=== PATIENT | female | born 1970 | race African-American/Black ===

== ENCOUNTER 2016-06-13 05:07 | Inpatient (IN) | payer BC, OTHER ==
[2016-06-10 16:35] VITALS: BMI 46.3
--- NOTE | 2016-06-13 09:21 | HP ---
History & Physical Update - History History: No Change - Physical Physical: No Change - Assessment Assessment: No Change - Plan Plan: No Change (Enlarged fibroid uterus, menorrhagia - for SARA and bilateral salpingectomy)
[2016-06-13] MEDS ORDERED: CEFAZOLIN 2 GM/D5W 50 ML IVPB ONE (10:15)
[2016-06-13] MEDS ORDERED: ROPIVACAINE HCL 0.5% 30ML VIAL ONE (10:31)
[2016-06-13] MEDS ORDERED: MIDAZOLAM HCL 2 MG/2 ML SINGLE DOSE VIAL ONE ×2 (10:32)
[2016-06-13] MEDS ORDERED: PROPOFOL 20 ML ONE (11:53)
[2016-06-13] MEDS ORDERED: HYDROmorphone HCL CARPU-JECT 1 MG/1 ML DISP.SYRIN IVPB PRN ×2 (11:57→15:06)
[2016-06-13] MEDS ORDERED: HYDROmorphone HCL 2 MG TABLET PO PRN (11:57)
[2016-06-13] MEDS ORDERED: ONDANSETRON 4 MG/2 ML VIAL IVPB PRN (11:58)
[2016-06-13] MEDS ORDERED: ceFAZolin SODIUM 1 GM VIAL IVPB ONE (12:36)
[2016-06-13] MEDS ORDERED: ceFAZolin SODIUM 1 GM VIAL ONE (12:42)
[2016-06-13] MEDS ORDERED: HYDROCORTISONE SOD SUCCINATE 2 ML ONE (12:48)
[2016-06-13] MEDS ORDERED: HYDROmorphone HCL/PF 1 MG/ML VIAL (FOR PYXIS CHARGING ONLY) ONE (12:48)
[2016-06-13] MEDS ORDERED: KETOROLAC TROMETHAMINE 30 MG/1 ML VIAL ONE (12:54)
[2016-06-13] MEDS ORDERED: DEXAMETHASONE SOD PHOSPHATE 4 MG/1 ML VIAL ONE (12:54)
[2016-06-13] MEDS ORDERED: METHYLENE BLUE 1% 10 MG/1 ML VIAL ONE (13:24)
[2016-06-13] MEDS ORDERED: METHYLENE BLUE 1% 10 MG/1 ML VIAL IVPUSH ONE (14:09)
[2016-06-13] MEDS ORDERED: NEOSTIGMINE METHYLSULFATE 0.5 MG/ML - 10 ML MDV ONE (14:15)
[2016-06-13] MEDS ORDERED: GLYCOPYRROLATE 0.2 MG/1 ML VIAL ONE (14:16)
[2016-06-13] MEDS ORDERED: HYDROmorphone *PCA* 10MG/50ML DISP.SYRIN PCA ONE (14:57)
[2016-06-13] MEDS ORDERED: DEXAMETHASONE SOD PHOSPHATE 4 MG/1 ML VIAL IVPUSH PRN (15:06)
[2016-06-13] MEDS ORDERED: PROMETHAZINE HCL 25 MG/1 ML VIAL IVPB PRN (15:06)
--- NOTE | 2016-06-13 15:26 | OP ---
Operative Note - Note: Operative Date: 06/13/16 Pre-Operative Diagnosis: Large fibroid uterus, menorrhagia, anemia Operation: SARA, RSO, left salpingectomy Findings: 20 week size enlarged fibroid uterus normal bilateral ovaries left hydrosalpinx normal right fallopian tube Post-Operative Diagnosis: Same as Pre-op Surgeon: Genesis Angela Priming Powder Premix Blender: Katelin Marquez Anesthesiologist/STATION INSTALLER AND REPAIRER: Uyen Vicente Anesthesia: General Specimens Removed: Uterus, Cervix, Bilateral fallopian tubes, right ovary Estimated Blood Loss (mls): 750 Blood Volume Replaced (mls): 350 Operative Report Dictated: Yes
[2016-06-13] MEDS ORDERED: IBUPROFEN 800 MG/8 ML IJ IVPB PRN (16:00)
[2016-06-13] MEDS: INSULIN SLIDING SCALE (NOVOLOG) 1 VIAL SQ SCH ×3 (17:54→22:33)
[2016-06-13] MEDS: LACTATED RINGERS SOLUTION 1,000 ML IV SCH (19:00)
[2016-06-13] MEDS: CEFAZOLIN 2 GM in DEXTROSE 5%-WATER - 100 ML IVPB SCH (20:59)
[2016-06-13] MEDS: ATORVASTATIN CA 20 MG TABLET (FP) PO SCH (22:19)
[2016-06-14] MEDS: INSULIN SLIDING SCALE (NOVOLOG) 1 VIAL SQ SCH ×6 (02:43→20:17)
[2016-06-14] MEDS: CEFAZOLIN 2 GM in DEXTROSE 5%-WATER - 100 ML IVPB SCH (05:30)
--- NOTE | 2016-06-14 07:36 | PN ---
Progress Note, Physician Chief Complaint: Pt. pain controlled with TIMBER FRAMER. No GA complaints. - Current Medication List Current Medications: Active Medications Acetaminophen (Tylenol -) 650 mg PO Q4H PRN PRN Reason: FEVER OR PAIN Atorvastatin Calcium (Lipitor -) 20 mg PO HS [facility] Last Admin: 06/13/16 22:19 Dose: 20 mg Carvedilol (Coreg -) 12.5 mg PO BID [facility] Dexamethasone Sodium Phosphate (Decadron Injection -) 4 mg IVPUSH ONCE PRN PRN Reason: NAUSEA AND/OR VOMITING Diphenhydramine HCl (Benadryl Injection -) 12.5 mg IVPUSH ONCE PRN PRN Reason: FOR ITCHING Enoxaparin Sodium (Lovenox -) 40 mg SQ DAILY [facility] Hydromorphone HCl (Dilaudid -) 2 mg PO Q4H PRN PRN Reason: PAIN Hydromorphone HCl (Dilaudid -) 4 mg PO Q4H PRN PRN Reason: PAIN Hydromorphone HCl (Dilaudid Injection -) 1 mg IVPB Q4H PRN PRN Reason: PAIN Hydromorphone HCl (Dilaudid Injection -) 1 mg IVPB [id number] PRN PRN Reason: PAIN Stop: 06/16/16 15:07 Hydromorphone HCl (Dilaudid Still Photographer -) 0 mg TIMBER FRAMER TIMBER FRAMER [facility] PRN Reason: Protocol Stop: 06/20/16 15:07 Lactated Ringer's (Lactated Ringers Solution) 1,000 mls @ 125 mls/hr IV ASDIR [facility] Last Admin: 06/13/16 19:00 Dose: 125 mls/hr Ibuprofen (Caldolor Injection -) 800 mg IVPB Q6H PRN PRN Reason: FEVER Stop: 06/14/16 10:01 Insulin Aspart (Novolog Vial Sliding Scale -) 1 vial SQ Q4H [facility] PRN Reason: Protocol Last Admin: 06/14/16 06:02 Dose: Not Given Lisinopril (Prinivil) 20 mg PO DAILY [facility] Non-Formulary Medication (Canagliflozin [Invokana]) 300 mg PO DAILY [facility] Ondansetron HCl (Zofran Injection) 4 mg IVPB Q4H PRN PRN Reason: NAUSEA AND/OR VOMITING Promethazine HCl (Phenergan Injection -) 12.5 mg IVPB Q6H PRN PRN Reason: NAUSEA AND/OR VOMITING Simethicone (Mylicon -) 80 mg PO Q4H PRN PRN Reason: GAS - Objective Vital Signs: Vital Signs Temperature 98.0 F 06/14/16 06:00 Pulse Rate 79 06/14/16 06:00 Respiratory Rate 18 06/14/16 06:00 Blood Pressure 97/54 06/14/16 06:00 O2 Sat by Pulse Oximetry (%) 99 06/13/16 21:00 Constitutional: Yes: Well Nourished, No Distress, Calm Musculoskeletal: Yes: WNL Neurological: Yes: WNL, Alert, Oriented Assessment/Plan POD#1 s/p SARA, B/L Salpingectomy under GA with Dilaudid TIMBER FRAMER. Doing well. Continue TIMBER FRAMER.
[2016-06-14 08:06] LABS: BASOPHIL 0.4 % (0-2.0); MCH 24.6 pg (25.7-33.7); MCHC 31.2 g/dl (32.0-36.0); MEAN CELL VOLUME 78.6 fl (80-96); MEAN PLT VOLUME 9.1 fl (7.5-11.1); NEUTROPHILS 79.4 % (42.8-82.8); PLATELET COUNT 209 K/MM3 (134-434); RDW 25.1 % (11.6-15.6); WHITE BLOOD COUNT 15.4 K/mm3 (4.0-10.0)
[2016-06-14 09:32] LABS: ANISOCYTOSIS 3+; HYPOCHROMIA 2+; MICROCYTOSIS 2+; POLYCHROMASIA FEW
[2016-06-14] MEDS ORDERED: PATIENT'S OWN MEDICATION (NON-FORMULARY) (Canagliflozin [Invokana] 300 MG) PO SCH (10:00)
[2016-06-14] MEDS: LISINOPRIL 20 MG TABLET (FP) PO SCH (10:15)
[2016-06-14] MEDS: CARVEDILOL 12.5 MG TABLET (FP) PO SCH ×2 (10:15→21:19)
[2016-06-14] MEDS: ACETAMINOPHEN 325 MG TABLET (FP) PO PRN ×2 (11:19→16:10)
[2016-06-14] MEDS: SIMETHICONE 80 MG TAB.CHEW (FP) PO PRN ×2 (11:24→16:11)
[2016-06-14] MEDS: LACTATED RINGERS SOLUTION 1,000 ML IV SCH (12:00)
[2016-06-14] MEDS: ENOXAPARIN NA (PORCINE) 40 MG/0.4 ML DISP.SYRIN SQ SCH (13:48)
[2016-06-14] MEDS: HYDROmorphone HCL 2 MG TABLET PO PRN ×2 (16:30→21:18)
[2016-06-14] MEDS ORDERED: PCA PUMP KEY 1 EACH EACH ONE (17:57)
[2016-06-14] MEDS: HYDROmorphone *PCA* 10MG/50ML DISP.SYRIN PCA SCH (19:32)
[2016-06-14] MEDS: ATORVASTATIN CA 20 MG TABLET (FP) PO SCH (21:19)
[2016-06-15] MEDS: INSULIN SLIDING SCALE (NOVOLOG) 1 VIAL SQ SCH ×6 (00:03→22:18)
--- NOTE | 2016-06-15 01:58 | PN ---
[id number] Current Medications: Active Medications Acetaminophen (Tylenol -) 650 mg PO Q4H PRN PRN Reason: FEVER OR PAIN Last Admin: 06/14/16 16:10 Dose: 650 mg Atorvastatin Calcium (Lipitor -) 20 mg PO HS [facility] Last Admin: 06/14/16 21:19 Dose: 20 mg Carvedilol (Coreg -) 12.5 mg PO BID [facility] Last Admin: 06/14/16 21:19 Dose: 12.5 mg Diphenhydramine HCl (Benadryl Injection -) 12.5 mg IVPUSH ONCE PRN PRN Reason: FOR ITCHING Enoxaparin Sodium (Lovenox -) 40 mg SQ DAILY [facility] Last Admin: 06/14/16 13:48 Dose: 40 mg Hydromorphone HCl (Dilaudid -) 2 mg PO Q4H PRN PRN Reason: PAIN Last Admin: 06/14/16 11:18 Dose: 2 mg Hydromorphone HCl (Dilaudid Injection -) 1 mg IVPB Q4H PRN PRN Reason: PAIN Hydromorphone HCl (Dilaudid Injection -) 1 mg IVPB [id number] PRN PRN Reason: PAIN Stop: 06/16/16 15:07 Hydromorphone HCl (Dilaudid -) 4 mg PO Q4H PRN PRN Reason: PAIN Last Admin: 06/14/16 21:18 Dose: 4 mg Insulin Aspart (Novolog Vial Sliding Scale -) 1 vial SQ Q4H [facility] PRN Reason: Protocol Last Admin: 06/15/16 00:03 Dose: Not Given Lisinopril (Prinivil) 20 mg PO DAILY [facility] Last Admin: 06/14/16 10:15 Dose: 20 mg Non-Formulary Medication (Canagliflozin [Invokana]) 300 mg PO DAILY [facility] Promethazine HCl (Phenergan Injection -) 12.5 mg IVPB Q6H PRN PRN Reason: NAUSEA AND/OR VOMITING Simethicone (Mylicon -) 80 mg PO Q4H PRN PRN Reason: GAS Last Admin: 06/14/16 16:11 Dose: 80 mg - Objective Vital Signs: Vital Signs Temperature 98.0 F 06/14/16 20:59 Pulse Rate 88 06/14/16 20:59 Respiratory Rate 20 06/14/16 20:59 Blood Pressure 103/53 06/14/16 20:59 O2 Sat by Pulse Oximetry (%) 99 06/13/16 21:00 Constitutional: Yes: Well Nourished, No Distress Gastrointestinal: Yes: Soft, Abdomen, Obese Musculoskeletal: Yes: WNL Extremities: Yes: WNL Edema: No Wound/Incision: Yes: Clean/Dry, Dressing Dry and Intact Neurological: Yes: WNL, Alert, Oriented Labs Lab Results: CBC, BMP 06/14/16 06:00 Assessment/Plan POD 1 Plad ambulate paiin management
[2016-06-15] MEDS: HYDROmorphone HCL 2 MG TABLET PO PRN ×4 (03:02→19:21)
[2016-06-15] MEDS: ACETAMINOPHEN 325 MG TABLET (FP) PO PRN ×2 (03:03→19:20)
[2016-06-15] MEDS: LISINOPRIL 20 MG TABLET (FP) PO SCH (09:23)
[2016-06-15] MEDS: ENOXAPARIN NA (PORCINE) 40 MG/0.4 ML DISP.SYRIN SQ SCH (09:24)
[2016-06-15] MEDS: CARVEDILOL 12.5 MG TABLET (FP) PO SCH ×2 (09:24→21:45)
[2016-06-15] MEDS: SIMETHICONE 80 MG TAB.CHEW (FP) PO PRN ×2 (12:55→19:20)
--- NOTE | 2016-06-15 13:15 | PN ---
Progress Note (short form) - Note Progress Note: 45 yo with Leiomyoma of the uterus, status post SARA / RSO, seen and evaluated. She's lying in bed; c/o mild incision pain. PE : Chest :CTA, no rales ABD : Soft, obese, dressing in place + incision pain EXT : No calf tenderness ASS / PLAN : Status post SARA / RSO Ambulation Analgesia PRN pain Consider D/C Home tomorrow
[2016-06-15] MEDS: glipiZIDE 10 MG TABLET (FP) PO SCH (16:24)
[2016-06-15] MEDS: ATORVASTATIN CA 20 MG TABLET (FP) PO SCH (21:45)
[2016-06-15 23:07] VITALS: TEMP 98.3
[2016-06-16] MEDS: SIMETHICONE 80 MG TAB.CHEW (FP) PO PRN (05:18)
[2016-06-16] MEDS: ACETAMINOPHEN 325 MG TABLET (FP) PO PRN ×2 (05:18→09:56)
[2016-06-16] MEDS: HYDROmorphone HCL 2 MG TABLET PO PRN ×2 (05:19→09:57)
[2016-06-16] MEDS: glipiZIDE 10 MG TABLET (FP) PO SCH (06:37)
[2016-06-16] MEDS: INSULIN SLIDING SCALE (NOVOLOG) 1 VIAL SQ SCH ×2 (06:39→11:52)
--- NOTE | 2016-06-16 07:53 | DS ---
[id number] Rate 18 06/15/16 22:00 Blood Pressure 132/68 06/15/16 22:00 O2 Sat by Pulse Oximetry (%) 99 06/13/16 21:00 Constitutional: Yes: Well Nourished, No Distress, Calm Eyes: Yes: Conjunctiva Clear, EOM Intact HENT: Yes: Atraumatic, Normocephalic Neck: Yes: Supple, Trachea Midline Cardiovascular: Yes: Regular Rate and Rhythm Respiratory: Yes: Regular, CTA Bilaterally Gastrointestinal: Yes: Soft, Abdomen, Obese, Tenderness (appropriate post surgical tenderness). No: Distention, Vomiting Renal/: No: CVA Tenderness - Left, CVA Tenderness - Right, Vaginal Bleeding Edema: No Wound/Incision: Yes: Clean/Dry, Dressing Dry and Intact, Other (wound device in tact, no/scant drainage in cartridge) Neurological: Yes: Alert, Oriented Psychiatric: Yes: Alert, Oriented Labs: CBC, BMP 06/14/16 06:00 Discharge Summary Reason For Visit: LEIOMYOMA OF UTERUS Leiomyoma of uterus, anemia, obesity, diabetes, HTN Procedures: Principal: Total abdominal hysterectomy, RSO, left salpingectomy Hospital Course: Patient admitted on 06/13 for scheduled SARA and bilateral salpingectomy. Patient underwent procedure (see operative report for details). During the procedure she did receive one unit of packed red blood cells due to significant blood loss. The patient, on post op day 1, was tolerating clear diet and voiding. Hemoglobin/Hct was stable. On post op day 2 she was passing flatus and was transitioned to regular diet. She only tolerated a minimal amount of regular diet and was ambulating, but only minimally. The patient then, on post op day 3 was tolerating a regular diet, ambulating, voiding and passing flatus and was discharged home. Condition: Good - Instructions Diet, Activity, Other Instructions: Physical activity Resume your normal everyday activity as tolerated but no heavy lifting or strenuous exercise until seen by your surgeon. You may walk unlimited amounts and climb stairs. In fact, walking every day is essential to recovery. You may resume driving the car when you feel safe and comfortable behind the wheel. No sexual activity until cleared by your physician - about 6-8 weeks. You may shower daily, no soaking in tubs or baths. Wound care You have the wound device in place. It should be on and functioning for most of the day. If the battery dies, you can plug the device into the wall to charge it. Please see your patient manual for questions regarding the device. It will be removed at your next visit (7 days from your surgery). Diet There are no dietary restrictions. Eat healthy, high-fiber foods. Drink 6 to 8 glasses of liquid each day. This will assist in keeping your bowels regular. Pain management You may take Tylenol or Ibuprofen (for example, Motrin, Advil etc.)for mild pain. Please take any prescription narcotic medication as directed for severe pain. Call Dr. Angela for any of the following: Severe pain not relieved by medication Fever of 101 or higher Excessive bleeding or drainage on dressing Inability to urinate Call the office at [phone] for an appointment in seven days from the Surgery to have the wound device removed and to evaluate the incision. Referrals: Genesis Angela DO [Staff Physician] - Disposition: HOME - Home Medications Comprehensive Discharge Medication List: Ambulatory Orders Carvedilol [Coreg] 12.5 mg PO BID 03/20/15 Glipizide 10 mg PO BID 03/20/15 Lisinopril [Prinivil] 20 mg PO DAILY 03/20/15 Simvastatin [Zocor -] 20 mg PO HS 03/20/15 Canagliflozin [Invokana] 300 mg PO DAILY 06/10/16 Exenatide Microspheres [Bydureon Pen] 2 mg SQ WEEKLY 06/10/16 Iron,Carbonyl/Vit C/Vit B12/FA [Fe C Plus Tablet] 1 tab PO BID 06/10/16
[2016-06-16] MEDS: CARVEDILOL 12.5 MG TABLET (FP) PO SCH (09:52)
[2016-06-16] MEDS: ENOXAPARIN NA (PORCINE) 40 MG/0.4 ML DISP.SYRIN SQ SCH (09:52)
[2016-06-16] MEDS: LISINOPRIL 20 MG TABLET (FP) PO SCH (09:52)
[2016-06-16 10:06] VITALS: BP 157/75; PULSE 74
--- NOTE | 2016-06-17 10:33 | PATH ---
Surgical Pathology Report Patient Name: YINA GIBSON [facility]. Rec. #: [id number] /Age/Gender: 1970 (Age: 45) / F Account: [id number] Location: [facility] Taken: 06/13/2016 Received: 06/13/2016 Reported: 06/17/2016 Physicians: Ignacio Stephens M.D. Specimen(s) Received A: UTERUS B: RIGHT FALLOPIAN TUBE & OVARY C: CERVIX D: LEFT FALLOPIAN TUBE Clinical History Leiomyoma of uterus Intraoperative Consult Diagnosis Uterus (frozen): Benign on training representative sections. 1FS Dr. Rivas, 06/13/16. Final Diagnosis A. UTERUS, TOTAL ABDOMINAL HYSTERECTOMY: CERVICAL STUMP: CHRONIC CERVICITIS WITH SQUAMOUS METAPLASIA. ENDOMETRIUM: PREDOMINANTLY PROLIFERATIVE. MYOMETRIUM: EXTENSIVE ADENOMYOSIS WITH CYSTS FORMATION; LEIOMYOMATA WITH HYDROPIC CHANGE (LARGEST 9.0 CM). UTERINE SEROSA: NO SIGNIFICANT PATHOLOGIC CHANGES. B. OVARY AND FALLOPIAN TUBE, RIGHT, SALPINGO-OOPHORECTOMY: OVARY CYSTIC FOLLICLES AND FIBROHEMORRHAGIC ADHESIONS. FALLOPIAN TUBE WITH FIBRINOHEMORRHAGIC AND FIBROVASCULAR TUBO-OVARIAN ADHESIONS. C. CERVIX: CHRONIC CERVICITIS WITH SQUAMOUS METAPLASIA. D. FALLOPIAN TUBE, LEFT, SALPINGECTOMY: FALLOPIAN TUBE WITH HYDROSALPINX. Electronically Signed Roshan Rivas M.D. Gross Description A. Received fresh labeled "uterus" is a 2012 g supracervically amputated uterus with no attached adnexa. The specimen measures 21 cm from superior to inferior, 20 cm from left to right and 13 cm anterior to posterior. The serosa is pink-ramirez and smooth. The endometrial cavity measures 10 cm in length and 6.5 cm from cornu to cornu. The endometrium is ramirez and lush measuring up to 0.3 cm in thickness. The myometrium displays multiple intramural nodules measuring up to 9.0 cm in greatest dimension. The cut surface of the nodules id ramirez-white with some of the intramural nodules displaying foci of degeneration as well as focal hemorrhagic cysts containing dark brown blood. The remaining myometrium is ramirez-pink and measures up to 9 cm in thickness. A frozen section is performed on 2 of the intramural nodules. [place] sections are submitted in 14 cassettes as follows: 1-frozen section residue; 2-cervical stump margin of resection; 4-5-ovjfxostuctkmu; 9-63-wzmyxrlovc nodules. B. Received in formalin labeled "right fallopian tube and ovary" is a 1 cm in length fimbriated portion of fallopian tube. The outer surface is ramirez-britton with tubal ovarian adhesions. The attached ovary measures 4.0 x 2.0 x 1.1 cm. The outer surface of the ovary is ramirez-britton and smooth. Sectioning reveals multi-focal small cysts containing serous fluid. The remaining ovarian parenchyma is unremarkable. [place] sections are submitted in 4 cassettes as follows: 1-fimbria; 6-nquzl-dsbaiwho of fallopian tube; 9-3-vjkvnnyokyzdzn ovary. C. Received in formalin labeled "cervix" is a 5 cm in length x 2.7 cm in diameter unoriented cervix. The ectocervix is ramirez, smooth and glistening. The endocervix is unremarkable. [place] sections are submitted in 2 cassettes. D. Received in formalin labeled "left fallopian tube" is a 5 cm in length dilated, fimbriated fallopian tube. The outer surface is ramirez-britton and smooth. Sectioning reveals a focally dilated, cystic lumen containing ramirez serous fluid. [place] sections are submitted in 4 cassettes as follows: 1-2-fimbria; 9-6-pesqf-sections of fallopian tube. 06/14/2016 [facility]06/13/2016
--- NOTE | 2016-06-17 13:59 | OP ---
DATE OF OPERATION: PREOPERATIVE DIAGNOSES: Enlarged fibroid uterus, anemia, pelvic and abdominal pain. POSTOPERATIVE DIAGNOSES: Enlarged fibroid uterus, anemia, pelvic and abdominal pain. PROCEDURE: Total abdominal hysterectomy, right salpingo-oophorectomy, left salpingectomy. SURGEON: Genesis Angela DO DISTRIBUTION FIELD TECHNICIAN: Katelin Marquez MD ANESTHESIA: General administered by Uyen Vicente. ESTIMATED BLOOD LOSS: 750 mL. COMPLICATIONS: Otherwise none. DISPOSITION: Stable to PACU. FINDINGS: Included enlarged hydropic fibroid uterus, adhesions from the bladder to the anterior uterus, and adhesions from the right ovary to the uterus. Sponge, needle, and instrument count was reported as correct. BRIEF HISTORY AND PROCEDURE: The patient is a 45-year-old female who had been seen in the past with complaints of abdominal pain, heavy periods, and symptomatic anemia. Upon examination and imaging studies was noted to have a very large fibroid uterus. The patient was counseled on her options, and she was consented for a total abdominal hysterectomy and a bilateral salpingectomy. The patient has a medical history of diabetes, obesity, hypertension, anemia and; therefore, she underwent a preoperative clearance from her primary care physician. She was then admitted to [facility] on June 13, 2016. Consents for the procedure were reconfirmed upon admission. The patient and the surgeon were mutually identified in the holding area. DESCRIPTION OF PROCEDURE: She was then taken back to the operating room where she was given general anesthesia by Uyen Vicente. She was then prepped and draped in the usual sterile fashion in the dorsal supine position. A Blum catheter was placed under sterile conditions. A hard time-out was performed. Then a Pfannenstiel skin incision was created using a scalpel which was carried down to the rectus fascia with the Bovie. The fascia was incised on either side of the midline with the Bovie, and the fascial incision was carried in a superolateral direction sharply with the Bovie. The fascia was tented upward and dissected off of the underlying layer of rectus muscle. The rectus muscle was identified. The midline was identified and bluntly. The peritoneum was then entered sharply to allow for adequate room for the procedure. The uterus was elevated out of the abdomen and noted to be very enlarged and appeared soft upon palpation. Attention was first turned to the right side. There were adhesions noted from the anterior bladder to the uterine serosa, which were dissected off sharply with Metzenbaum scissors. The round ligament was not easily identified at this time so attention was then turned to the left side. The left uteroovarian anastomosis was identified, clamped, cut, and ligated with the LigaSure device. This successfully dissected the ovary and tube off the uterus. The left round ligament was easily identified, clamped, ligated and cut with the LigaSure device, and the bladder flap on the left side was easily dissected anteriorly to dissect the bladder off the anterior wall of the uterus. The left uterine arteries were then isolated, clamped, ligated and cut in several passes until we reached the level of the uterosacral ligaments. Attention was then again turned to the right side. Anteriorly the bladder flap was extended to reach the level of the right round ligament. At this point, the right round ligament was easily identified, clamped, ligated and cut. The right tube and ovary were densely adhered to the uterus at this time, and an attempt to dissect the ovary from the uterus resulted in bleeding. At this point, it was decided to remove the right tube and ovary along with the uterus. The right infundibulopelvic ligament was identified, clamped, ligated and cut at the level of its attachment to the uterus. The uterine arteries were skeletonized and isolated, clamped, ligated and cut in several passed until we reached the level of the uterosacral ligaments on the right side. The uterus was detached in a supracervical fashion using the Bovie leaving the cervical stump in place. The uterus, which was enlarged and appeared soft, was sent to Pathology for frozen evaluation to rule out uterine sarcoma. Attention was then turned to the cervix, which was then elevated and it appeared at the level of the cervicovaginal junction had been met. The vagina was then entered anteriorly sharply with a knife, and the cervix was detached from the vagina at the cervicovaginal junction using Richy scissors. The cervix was then sent off to pathology for permanent evaluation. The vagina was reapproximated using 0 Vicryl in a running, locked fashion. Hemostasis was achieved by 1 single compression suture after the repair. Bilateral ureters were identified, inspected, and noted to be normal caliber and peristalsing normally. The bladder was identified and appeared to be intact. Methylene blue had been injected approximately 30 minutes prior. No Methylene blue was noted to be leaking into the abdomen at this time from any source. All surgical sites were identified and noted to be hemostatic. Next, the peritoneum was reapproximated using 0 Vicryl in a running fashion. The musculature was reapproximated using 0 Vicryl in several mattress sutures. The fascia was reapproximated using 0 Vicryl in a running fashion. The subcutaneous tissue was irrigated and reapproximated using 0 Vicryl in a running fashion. The skin was reapproximated using herman. The PREVENA wound device was placed over the top of the incision at this time under sterile conditions with the senior outside sales representative in the room providing instruction. The patient was then awaken from anesthesia. All sponges, needles, and instruments were accounted for, and counts were reported to be correct. She was then recovering in stable condition in the PACU after the procedure. GENESIS ANGELA DO /[id number] MTDD
== END 2016-06-16 12:20 | disposition home or self-care (01) | DRG 742 ==
LOC: JSAMEDAYSX 05:07 → J3W 17:00
PROVIDERS: ADMIT Obstetrics & Gynecology; ATTEND Obstetrics & Gynecology
PROC: 0UTC0ZZ Resection of Cervix, Open Approach (ICD-10-PCS; 2016-06-13)
PROC: 0UT50ZZ Resection of Right Fallopian Tube, Open Approach (ICD-10-PCS; 2016-06-13)
PROC: 0UT00ZZ Resection of Right Ovary, Open Approach (ICD-10-PCS; 2016-06-13)
PROC: 0UB60ZZ Excision of Left Fallopian Tube, Open Approach (ICD-10-PCS; 2016-06-13)
PROC: 30233N1 Transfusion of Nonautologous Red Blood Cells into Peripheral Vein, Percutaneous Approach (ICD-10-PCS; 2016-06-13)
PROC: 0UT90ZZ Resection of Uterus, Open Approach (ICD-10-PCS; principal; 2016-06-13 11:00)
DX: D25.9 Leiomyoma of uterus, unspecified (principal); Z68.42 Body mass index [BMI] 45.0-49.9, adult; N92.0 Excessive and frequent menstruation with regular cycle; D64.9 Anemia, unspecified; E11.9 Type 2 diabetes mellitus without complications; I10 Essential (primary) hypertension; E66.9 Obesity, unspecified; Z79.84 Long term (current) use of oral hypoglycemic drugs
CPT/HCPCS: 36415; 36430; 84702; 85025; 86850; 86900; 86901; 86922; 88305-TC; 88307-TC; 88331-TC; 94010; 94760; P9058

== ENCOUNTER 2017-08-04 08:02 | Inpatient (IN) | payer BC ==
[2017-08-04 08:23] VITALS: BMI 46.0
--- NOTE | 2017-08-04 08:54 | PDOC ---
History of Present Illness - General Chief Complaint: Chest Pain Stated Complaint: CHEST PAIN Time Seen by Provider: 08/04/17 08:40 Past History - Past Medical History Allergies/Adverse Reactions: Allergies Allergy/AdvReac Type Severity Reaction Status Date / Time No Known Allergies Allergy Verified 08/04/17 08:20 Home Medications: Ambulatory Orders Carvedilol [Coreg] 12.5 mg PO BID 03/20/15 Glipizide 10 mg PO BID 03/20/15 Simvastatin [Zocor -] 20 mg PO HS 03/20/15 Canagliflozin [Invokana] 100 mg PO DAILY 06/10/16 Ibuprofen [Motrin -] 600 mg PO QID PRN #28 tablet 06/16/16 Losartan/Hydrochlorothiazide [Losartan-Hctz 100-12.5 mg Tab] 1 each PO DAILY Omeprazole 40 mg PO DAILY 08/04/17 Apixaban [Eliquis -] 10 mg PO BID #14 tablet 08/07/17 Miscellaneous Medical Supply [Outpatient Order] 1 each ASDIR #1 misc Anemia: Yes Asthma: No Cancer: No Cardiac Disorders: No CVA: No COPD: No CHF: No Dementia: No Diabetes: Yes GI Disorders: No Disorders: No HTN: Yes Hypercholesterolemia: Yes Liver Disease: No Seizures: No Thyroid Disease: No - Surgical History Abdominal Surgery: No Appendectomy: No Cardiac Surgery: No Cholecystectomy: No Lung Surgery: No Neurologic Surgery: No Orthopedic Surgery: No - Suicide/Smoking/Psychosocial Hx Smoking History: Never smoked Have you smoked in the past 12 months: No Hx Alcohol Use: No Drug/Substance Use Hx: No Substance Use Type: None Hx Substance Use Treatment: No *Physical Exam - Vital Signs Last Vital Signs Temp Pulse Resp BP Pulse Ox 98.4 F 79 19 130/76 97 08/04/17 08:21 08/04/17 08:21 08/04/17 08:21 08/04/17 08:21 08/04/17 08:21 Moderate Sedation - Procedure Monitoring Vital Signs: Vital Signs Temp Pulse Resp BP Pulse Ox 98.4 F 79 19 130/76 97 08/04/17 08:21 08/04/17 08:21 08/04/17 08:21 08/04/17 08:21 08/04/17 08:21 ED Treatment Course - LABORATORY CBC & Chemistry Diagram: 08/05/17 07:41 08/05/17 07:45 Medical Decision Making - Medical Decision Making 08/14/17 07:15 pt presents to the ED complaining of chest pain and shortness of breath. CTA performed to rule out PE and is suggestive of "chronic" PE. Will start anticoagulation and admit to medicine. *DC/Admit/Observation/Transfer Diagnosis at time of Disposition: Pulmonary emboli, Chest pain - Discharge Dispostion Disposition: HOME - Prescriptions - Referrals - Patient Instructions - Post Discharge Activity
[2017-08-04] MEDS ORDERED: ASPIRIN 81 MG CHEWABLE TABLETS PO ONE (09:26)
[2017-08-04] MEDS ORDERED: ASPIRIN 81 MG CHEWABLE TABLETS ONE (09:27)
--- NOTE | 2017-08-04 09:51 | PDOC ---
History of Present Illness - General Chief Complaint: Chest Pain Stated Complaint: CHEST PAIN Time Seen by Provider: 08/04/17 08:40 History Source: Patient Exam Limitations: No Limitations - History of Present Illness Initial Comments: 08/04/17 09:38 46-year-old female presents to the ED with complaints of being awoke from her sleep with a sharp midsternal pain that she states has been constant since onset but has lessened in severity approximate half hour upon onset. Patient also complaining of nausea upon onset with mild shortness of breath. Patient denies cough, fever, chills, fatigue, recent illness, recent travel, or recent surgery. Patient states has had right lower extremity edema for the past 2 months and had an ultrasound done with negative findings. Patient has no other complaints at this time except for mild nausea. Patient denies burning sensation , palpitations, abdominal pains, or change in bowel pattern. Presenting Symptoms: Chest Pain Timing/Duration: reports: constant Severity/Quality: reports: mild, sharp Location: reports: substernal Chest Pain Radiation: reports: no radiation Prior Chest Pain/Cardiac Workup: reports: No prior chest pain Nitro Today/Relief: Yes: no nitro taken today Aspirin Received prior to arrival (Core Measure): Yes: 81 mg x 2, provided by ED Associated Symptoms: Yes: Chest Pain/pressure, Nausea, Shortness of Breath Past History - Travel Traveled outside of the country in the last 30 days: No - Past Medical History Allergies/Adverse Reactions: Allergies Allergy/AdvReac Type Severity Reaction Status Date / Time No Known Allergies Allergy Verified 08/04/17 08:20 Home Medications: Ambulatory Orders Carvedilol [Coreg] 12.5 mg PO BID 03/20/15 Glipizide 10 mg PO BID 03/20/15 Lisinopril [Prinivil] 20 mg PO DAILY 03/20/15 Simvastatin [Zocor -] 20 mg PO HS 03/20/15 Canagliflozin [Invokana] 300 mg PO DAILY 06/10/16 Exenatide Microspheres [Bydureon Pen] 2 mg SQ WEEKLY 06/10/16 Iron,Carb/Vit C/Vit B12/Folic [Fe C Plus Tablet] 1 tab PO BID 06/10/16 Ibuprofen [Motrin -] 600 mg PO QID PRN #28 tablet 06/16/16 Oxycodone HCl/Acetaminophen [Percocet 5-325 mg Tablet -] 1 tab PO Q4H #30 tablet MDD 6 06/16/16 Anemia: Yes Asthma: No Cancer: No Cardiac Disorders: No CVA: No COPD: No CHF: No Dementia: No Diabetes: Yes GI Disorders: No Disorders: No HTN: Yes Hypercholesterolemia: Yes Liver Disease: No Seizures: No Thyroid Disease: No - Surgical History Abdominal Surgery: No Appendectomy: No Cardiac Surgery: No Cholecystectomy: No Lung Surgery: No Neurologic Surgery: No Orthopedic Surgery: No - Suicide/Smoking/Psychosocial Hx Smoking History: Never smoked Have you smoked in the past 12 months: No Hx Alcohol Use: No Drug/Substance Use Hx: No Substance Use Type: None Hx Substance Use Treatment: No Patient Lives Alone: No Cardiac Specific PMH - Complaint Specific PMHX Pacemaker: No Review of Systems - Review of Systems Able to Perform ROS?: No Constitutional: No: Symptoms Reported HEENTM: No: Symptoms Reported Respiratory: No: Symptoms reported Cardiac (ROS): Yes: Symptoms Reported, Chest Pain ABD/GI: Yes: Nausea. No: Poor Appetite, Poor Fluid Intake, Vomiting, Abdominal cramping : No: Symptoms Reported Musculoskeletal: No: Symptoms Reported Integumentary: No: Symptoms Reported Neurological: No: Symptoms reported, Headache, Numbness, Weakness Endocrine: No: Symptoms Reported Hematologic/Lymphatic: No: Symptoms Reported *Physical Exam - Vital Signs Last Vital Signs Temp Pulse Resp BP Pulse Ox 98.4 F 79 20 127/61 100 08/04/17 08:21 08/04/17 11:27 08/04/17 11:27 08/04/17 11:27 08/04/17 11:27 - Physical Exam General Appearance: Yes: Nourished, Appropriately Dressed. No: Apparent Distress HEENT: positive: EOMI, MIKAYLA. negative: Pale Conjunctivae Neck: positive: Supple Respiratory/Chest: positive: Chest Tender (mild over lower aspect of sternum), Lungs Clear, Normal Breath Sounds. negative: Respiratory Distress, Accessory Muscle Use Cardiovascular: positive: Regular Rhythm, Regular Rate. negative: Murmur Gastrointestinal/Abdominal: positive: Soft. negative: Tenderness Extremity: positive: Normal Capillary Refill, Pedal Edema (1+pitting rt pedal) Integumentary: positive: Normal Color, Warm, Moist Neurologic: positive: Motor Strength 5/5 (ambulatory) Heart Score/ECG Review - History History: Slightly suspicious - Electrocardiogram EKG: Normal - Age Age: 45-65 - Risk Factors Risk Factors Heart Score: Yes Hx Hypertension Based on the list above the patient has:: 1-2 risk factors - Troponin Troponin: </= normal limit - Score Heart Score - Total: 2 - ECG Intrepretation Rhythm: Regular Rhythm (Rate 76. Normal sinus rhythm. Intervals are regular. No ST elevation or depression.) - [place]: Normal Moderate Sedation - Procedure Monitoring Vital Signs: Vital Signs Temp Pulse Resp BP Pulse Ox 98.4 F 79 20 127/61 100 08/04/17 08:21 08/04/17 11:27 08/04/17 11:27 08/04/17 11:27 08/04/17 11:27 ED Treatment Course - LABORATORY CBC & Chemistry Diagram: 08/04/17 09:45 08/04/17 09:45 - ADDITIONAL ORDERS Additional order review: Laboratory Results 08/04/17 08/04/17 08/04/17 09:45 09:45 09:45 PT with INR INR D-Dimer 5940 H Sodium 138 Potassium 4.2 Chloride 104 Carbon Dioxide 29 Anion Gap 5 L BUN 12 Creatinine 1.0 Creat Clearance w eGFR 59.43 Random Glucose 227 H Calcium 8.5 Total Bilirubin 0.4 AST 11 L ALT 18 Alkaline Phosphatase 156 H Creatine Kinase 157 Creatine Kinase Index 0.6 CK-MB (CK-2) < 1.000 Troponin I < 0.02 Total Protein 7.1 Albumin 3.0 L Urine Color Colorless Urine Appearance Clear Urine pH 7.0 Ur Specific [place] 1.021 Urine Protein Negative Urine Glucose (UA) 3+ H Urine Ketones Negative Urine Blood Negative Urine Nitrite Negative Urine Bilirubin Negative Urine Urobilinogen Negative Ur Leukocyte Esterase Negative 08/04/17 09:45 PT with INR 11.50 INR 1.02 D-Dimer Sodium Potassium Chloride Carbon Dioxide Anion Gap BUN Creatinine Creat Clearance w eGFR Random Glucose Calcium Total Bilirubin AST ALT Alkaline Phosphatase Creatine Kinase Creatine Kinase Index CK-MB (CK-2) Troponin I Total Protein Albumin Urine Color Urine Appearance Urine pH Ur Specific [place] Urine Protein Urine Glucose (UA) Urine Ketones Urine Blood Urine Nitrite Urine Bilirubin Urine Urobilinogen Ur Leukocyte Esterase 08/04/17 09:45 RBC 4.62 MCV 92.2 MCHC 32.7 RDW 14.8 D MPV 10.3 D Neutrophils % 61.7 D Lymphocytes % 28.8 D Monocytes % 6.7 Eosinophils % 2.2 D Basophils % 0.6 - RADIOLOGY Radiology Studies Ordered: Category Date Time Status CHEST CTA [CT] Stat CT Scan 08/04/17 10:52 Completed CHEST X-RAY PORTABLE* [RAD] Stat Radiology 08/04/17 09:15 Completed DUPLEX VASCUL US-1 LEG [US] Stat Ultrasound 08/04/17 10:52 Completed - Medications Given in the ED: ED Medications Discontinued Medications Generic Name Dose Route Start Last Admin Trade Name Luisq PRN Reason Stop Dose Admin Aspirin 162 mg 08/04/17 09:26 08/04/17 09:35 Asa - PO 08/04/17 09:27 162 mg ONCE ONE Administration Pantoprazole Sodium 40 mg/ 100 mls @ 200 mls/hr 08/04/17 10:51 08/04/17 13:10 Sodium Chloride IVPB 08/04/17 11:20 200 mls/hr ONCE ONE Administration Ondansetron HCl 4 mg 08/04/17 10:51 08/04/17 13:10 Zofran Injection IVPUSH 08/04/17 10:52 4 mg ONCE ONE Administration Medical Decision Making - Medical Decision Making 08/04/17 09:50 Patient with substernal sharp pain that began around 2 AM this morning and has continued but less severity. Patient with mild tenderness to the lower sternum. Patient ordered for cardiac workup including d-dimer to rule out PE secondary to shortness of breath and right lower extremity edema despite negative duplex study. Patient also ordered for 2 baby aspirin and Zofran along with Protonix. 08/04/17 10:52 08/04/17 10:53 Laboratory Tests 08/04/17 08/04/17 08/04/17 09:45 09:45 09:45 WBC 7.7 D Hgb 13.9 D Hct 42.6 D Neutrophils % 61.7 D D-Dimer Sodium 138 Potassium 4.2 Chloride 104 Carbon Dioxide 29 Anion Gap 5 L BUN 12 Creatinine 1.0 Creat Clearance w eGFR 59.43 Random Glucose 227 H Calcium 8.5 Total Bilirubin 0.4 AST 11 L ALT 18 Alkaline Phosphatase 156 H Troponin I < 0.02 Urine Glucose (UA) 3+ H Urine Nitrite Negative Ur Leukocyte Esterase Negative 08/04/17 09:45 WBC Hgb Hct Neutrophils % D-Dimer 5940 H Sodium Potassium Chloride Carbon Dioxide Anion Gap BUN Creatinine Creat Clearance w eGFR Random Glucose Calcium Total Bilirubin AST ALT Alkaline Phosphatase Troponin I Urine Glucose (UA) Urine Nitrite Ur Leukocyte Esterase 08/04/17 12:11 Duplex negative for DVT. Patient awaiting CTA of the chest 08/04/17 14:58 Chest CTA shows a non-opacification of the anterior medial segmental pulmonary artery branch which is concerning for acute pulmonary embolus. Subsegmental atelectasis versus infarction and anterior left lung base. Web within the left lower lobe pulmonary artery may be the chronic sequela of the prior pulmonary embolus. On incidental finding patient also has a small hiatal hernia and a 1.5 liver lesion which may be a cyst or hemangioma which is recommending a nonemergent outpatient liver sonogram. There is also a subcentimeter left thyroid nodule. case discussed with Dr. arredondo, medicine validation consultant, and agrees patient should be admitted. 08/04/17 14:58 Consultation to be placed for Dr. Paez key attendant and Dr. Vickey martin lawn service supervisor. Patient be placed on a heparin drip. *DC/Admit/Observation/Transfer Diagnosis at time of Disposition: Pulmonary emboli, Chest pain - Discharge Dispostion Decision to Admit order: Yes - Referrals Referrals: Alan Engel v [Primary Care Provider] - - Patient Instructions - Post Discharge Activity
[2017-08-04 10:03] LABS: URINE APPEARANCE CLEAR; URINE BILIRUBIN NEGATIVE (<2.0 mg/dL); URINE COLOR COLORLESS; URINE GLUCOSE (UA) 3+ (NEGATIVE); URINE KETONE NEGATIVE (NEGATIVE); URINE LEUK ESTERASE NEGATIVE (NEGATIVE); URINE NITRITE NEGATIVE (NEGATIVE); URINE PROTEIN NEGATIVE (NEGATIVE); URINE UROBILINOGEN NEGATIVE mg/dL (0.2-1.0)
[2017-08-04 10:28] LABS: INR 1.02 (0.82-1.09); PROTHROMBIN TIME (PATIENT) 11.5 SEC (9.7-13.0)
[2017-08-04 10:33] LABS: ANION GAP 5 (8-16); BLOOD UREA NITROGEN 12 mg/dL (7-18); CALCIUM 8.5 mg/dL (8.5-10.1); CHLORIDE 104 mmol/L (98-107); CO2 29 mmol/L (21-32); POTASSIUM 4.2 mmol/L (3.5-5.1); SODIUM 138 mmol/L (136-145)
[2017-08-04 10:34] LABS: BASO % 0.6 % (0-2.0); EOS % 2.2 % (0-4.5); HEMATOCRIT 42.6 % (32.4-45.2); HEMOGLOBIN 13.9 GM/dL (10.7-15.3); LYMPH % 28.8 % (8-40); MCH 30.2 pg (25.7-33.7); MCHC 32.7 g/dl (32.0-36.0); MEAN CELL VOLUME 92.2 fl (80-96); MEAN PLT VOLUME 10.3 fl (7.5-11.1); MONO % 6.7 % (3.8-10.2); NEUT % 61.7 % (42.8-82.8); PLATELET COUNT 204 K/MM3 (134-434); RBC 4.62 M/mm3 (3.60-5.2); RDW 14.8 % (11.6-15.6); WHITE BLOOD COUNT 7.7 K/mm3 (4.0-10.0)
[2017-08-04 10:41] LABS: ALK PHOS 156 U/L (45-117); BILIRUBIN,TOTAL 0.4 mg/dL (0.2-1.0); GLUCOSE,RANDOM 227 mg/dL (74-106); SGOT/AST 11 U/L (15-37); SGPT/ALT 18 U/L (12-78); TOT PROT 7.1 g/dl (6.4-8.2)
[2017-08-04] MEDS ORDERED: ONDANSETRON 4 MG/2 ML VIAL IVPUSH ONE (10:51)
[2017-08-04] MEDS ORDERED: PANTOPRAZOLE SODIUM 40 MG in SODIUM CHLORIDE 100 ML IVPB ONE (10:51)
[2017-08-04] MEDS ORDERED: PANTOPRAZOLE SODIUM 40 MG/100 ML BAG IVPB ONE (13:09)
[2017-08-04] MEDS ORDERED: ONDANSETRON 4 MG/2 ML VIAL ONE (13:09)
[2017-08-04] MEDS ORDERED: HEPARIN NA (PORCINE) 5,000 UNITS/ML 1ML VIAL IVPUSH PRN ×3 (15:03→20:36)
[2017-08-04] MEDS ORDERED: HEPARIN NA (PORCINE) 5,000 UNITS/ML 1ML VIAL IVPUSH ONE (15:04)
[2017-08-04] MEDS ORDERED: HEPARIN INFUSION - 25,000 UNITS/500 ML INFUS.BAG IVPB ONE (15:56)
[2017-08-04] MEDS ORDERED: HEPARIN NA (PORCINE) 5,000 UNITS/ML 1ML VIAL ONE (15:56)
[2017-08-04] MEDS: HEPARIN INFUSION - 25,000 UNITS/500 ML INFUS.BAG IVPB SCH (16:00)
--- NOTE | 2017-08-04 18:01 | EKG ---
Test Reason : Blood Pressure : / mmHG Vent. Rate : 083 BPM Atrial Rate : 083 BPM P-R Int : 166 ms QRS Dur : 094 ms QT Int : 472 ms P-R-T Axes : 052 -16 024 degrees QTc Int : 554 ms NORMAL SINUS RHYTHM INCOMPLETE RIGHT BUNDLE BRANCH BLOCK MINIMAL VOLTAGE CRITERIA FOR LVH, MAY BE NORMAL VARIANT CANNOT RULE OUT ANTEROSEPTAL INFARCT , AGE UNDETERMINED ABNORMAL ECG WHEN COMPARED WITH ECG OF 04-AUG-2017 08:02, NO SIGNIFICANT CHANGE WAS FOUND Confirmed by NILS ROSALES MD ([id number]) on 08/04/2017 6:00:45 PM Referred By: Confirmed By:NILS ROSALES MD
--- NOTE | 2017-08-04 20:21 | HP ---
Admitting History and Physical - Primary Care Physician PCP: Shikha Bone - Admission Chief Complaint: chest pain History of Present Illness: 46-year-old female presents to the ED with complaints of being awoke from her sleep with a sharp midsternal pain that she states has been constant since onset but has lessened in severity approximate half hour upon onset. Patient also complaining of nausea upon onset with mild shortness of breath. Patient denies cough, fever, chills, fatigue, recent illness, recent travel, or recent surgery. Patient states has had right lower extremity edema for the past 2 months and had an ultrasound done with negative findings. Patient has no other complaints at this time except for mild nausea. - Past Medical History Cardiovascular: Yes: HTN ...LMP: 05/27/16 Endocrine: Yes: Diabetes Mellitus - Smoking History Smoking history: Never smoked Have you smoked in the past 12 months: No - Alcohol/Substance Use Hx Alcohol Use: No Home Medications - Allergies Allergies/Adverse Reactions: Allergies Allergy/AdvReac Type Severity Reaction Status Date / Time No Known Allergies Allergy Verified 08/04/17 08:20 - Home Medications Home Medications: Ambulatory Orders Carvedilol [Coreg] 12.5 mg PO BID 03/20/15 Glipizide 10 mg PO BID 03/20/15 Simvastatin [Zocor -] 20 mg PO HS 03/20/15 Canagliflozin [Invokana] 100 mg PO DAILY 06/10/16 Ibuprofen [Motrin -] 600 mg PO QID PRN #28 tablet 06/16/16 Losartan/Hydrochlorothiazide [Losartan-Hctz 100-12.5 mg Tab] 1 each PO DAILY Omeprazole 40 mg PO DAILY 08/04/17 Apixaban [Eliquis -] 10 mg PO BID #14 tablet 08/07/17 Miscellaneous Medical Supply [Outpatient Order] 1 each ASDIR #1 misc Physical Examination Vital Signs: Vital Signs Temperature 98.4 F 08/04/17 08:21 Pulse Rate 79 08/04/17 11:27 Respiratory Rate 20 08/04/17 11:27 Blood Pressure 127/61 08/04/17 11:27 O2 Sat by Pulse Oximetry (%) 100 08/04/17 11:27 Constitutional: Yes: No Distress HENT: Yes: Atraumatic Neck: Yes: Supple Cardiovascular: Yes: Regular Rate and Rhythm Respiratory: Yes: CTA Bilaterally Gastrointestinal: Yes: Normal Bowel Sounds Extremities: Yes: WNL Edema: No Peripheral Pulses WNL: Yes Neurological: Yes: Alert, Oriented Labs: CBC, BMP 08/04/17 09:45 08/04/17 09:45 Imaging - Results X-ray: Report Reviewed Cat Scan: Report Reviewed Problem List - Problems (1) Chest pain Code(s): R07.9 - CHEST PAIN, UNSPECIFIED (2) Pulmonary emboli Assessment/Plan: iv heparin Code(s): I26.99 - OTHER PULMONARY EMBOLISM WITHOUT ACUTE COR PULMONALE (3) Diabetes Assessment/Plan: on meds, bgms stable Code(s): E11.9 - TYPE 2 DIABETES MELLITUS WITHOUT COMPLICATIONS (4) Hypercholesterolemia Assessment/Plan: on meds Code(s): E78.00 - PURE HYPERCHOLESTEROLEMIA, UNSPECIFIED (5) Hypertension Assessment/Plan: on meds Code(s): I10 - ESSENTIAL (PRIMARY) HYPERTENSION Assessment/Plan Laboratory Tests 08/04/17 08/04/17 08/04/17 09:45 09:45 09:45 WBC 7.7 D RBC 4.62 Hgb 13.9 D Hct 42.6 D MCV 92.2 MCH 30.2 D MCHC 32.7 RDW 14.8 D Plt Count 204 MPV 10.3 D Neutrophils % 61.7 D Lymphocytes % 28.8 D Monocytes % 6.7 Eosinophils % 2.2 D Basophils % 0.6 PT with INR 11.50 INR 1.02 D-Dimer Sodium Potassium Chloride Carbon Dioxide Anion Gap BUN Creatinine Creat Clearance w eGFR Random Glucose Calcium Total Bilirubin AST ALT Alkaline Phosphatase Creatine Kinase Creatine Kinase Index CK-MB (CK-2) Troponin I Total Protein Albumin Urine Color Colorless Urine Appearance Clear Urine pH 7.0 Ur Specific [place] 1.021 Urine Protein Negative Urine Glucose (UA) 3+ H Urine Ketones Negative Urine Blood Negative Urine Nitrite Negative Urine Bilirubin Negative Urine Urobilinogen Negative Ur Leukocyte Esterase Negative 08/04/17 08/04/17 08/04/17 09:45 09:45 15:11 WBC RBC Hgb Hct MCV MCH MCHC RDW Plt Count MPV Neutrophils % Lymphocytes % Monocytes % Eosinophils % Basophils % PT with INR INR D-Dimer 5940 H Sodium 138 Potassium 4.2 Chloride 104 Carbon Dioxide 29 Anion Gap 5 L BUN 12 Creatinine 1.0 Creat Clearance w eGFR 59.43 Random Glucose 227 H Calcium 8.5 Total Bilirubin 0.4 AST 11 L ALT 18 Alkaline Phosphatase 156 H Creatine Kinase 157 137 Creatine Kinase Index 0.6 CK-MB (CK-2) < 1.000 Troponin I < 0.02 < 0.02 Total Protein 7.1 Albumin 3.0 L Urine Color Urine Appearance Urine pH Ur Specific [place] Urine Protein Urine Glucose (UA) Urine Ketones Urine Blood Urine Nitrite Urine Bilirubin Urine Urobilinogen Ur Leukocyte Esterase Active Medications Generic Name Dose Route Start Last Admin Trade Name Freq PRN Reason Stop Dose Admin Heparin Sodium (Porcine) 1,000 unit 08/04/17 15:03 Heparin - IVPUSH PRN PRN Heparin Heparin Sodium/Dextrose 25,000 units in 500 mls @ 20 mls/hr 08/04/17 15:15 16:00 Heparin Infusion - IVPB 1,000 units/hr TITR KATELYN 20 mls/hr Protocol Administration 1,000 UNITS/HR Active Medications Generic Name Dose Route Start Last Admin Trade Name Freq PRN Reason Stop Dose Admin Carvedilol 12.5 mg 08/04/17 22:00 Coreg - PO BID KATELYN Glipizide 10 mg 08/04/17 22:00 Glucotrol - PO BID KATELYN Heparin Sodium (Porcine) 1,000 unit 08/04/17 15:03 Heparin - IVPUSH PRN PRN Heparin Heparin Sodium/Dextrose 25,000 units in 500 mls @ 20 mls/hr 08/04/17 15:15 16:00 Heparin Infusion - IVPB 1,000 units/hr TITR KATELYN 20 mls/hr Protocol Administration 1,000 UNITS/HR Non-Formulary Medication 100 mg 08/05/17 10:00 Canagliflozin [Invokana] PO DAILY [facility] Non-Formulary Medication 1 each 08/05/17 10:00 Losartan/Hydrochlorothiazide [Losartan-Hctz 100-12.5 Mg Tab] PO DAILY [facility] Non-Formulary Medication 40 mg 08/05/17 10:00 Omeprazole [Omeprazole] PO DAILY KATELYN Non-Formulary Medication 20 mg 08/04/17 22:00 Simvastatin PO [facility]
--- NOTE | 2017-08-04 23:38 | EKG ---
Test Reason : Blood Pressure : / mmHG Vent. Rate : 076 BPM Atrial Rate : 076 BPM P-R Int : 168 ms QRS Dur : 088 ms QT Int : 392 ms P-R-T Axes : 045 -14 018 degrees QTc Int : 441 ms NORMAL SINUS RHYTHM NORMAL ECG NO PREVIOUS ECGS AVAILABLE Confirmed by NILS ROSALES MD ([id number]) on 08/04/2017 11:38:20 PM Referred By: Confirmed By:NILS ROSALES MD
--- NOTE | 2017-08-04 23:53 | CONSULT ---
Consult - text type - Consultation Consultation Note: Patient seen and examined 46-year-old female presents to the ED with complaints of being awoke from her sleep with a sharp midsternal pain that she states has been constant since onset but has lessened in severity. Patient denies cough, fever, chills, fatigue , recent illness, recent travel, or recent surgery. Patient states has had right lower extremity edema for the past 2 months and had an ultrasound done with negative findings. Patient has no other complaints at this time except for mild nausea. Allergies/Adverse Reactions: Allergies Allergy/AdvReac Type Severity Reaction Status Date / Time No Known Allergies Allergy Verified 08/04/17 08:20 Home Medications: Ambulatory Orders Carvedilol [Coreg] 12.5 mg PO BID 03/20/15 Glipizide 10 mg PO BID 03/20/15 Lisinopril [Prinivil] 20 mg PO DAILY 03/20/15 Simvastatin [Zocor -] 20 mg PO HS 03/20/15 Canagliflozin [Invokana] 300 mg PO DAILY 06/10/16 Exenatide Microspheres [Bydureon Pen] 2 mg SQ WEEKLY 06/10/16 Iron,Carb/Vit C/Vit B12/Folic [Fe C Plus Tablet] 1 tab PO BID 06/10/16 Ibuprofen [Motrin -] 600 mg PO QID PRN #28 tablet 06/16/16 Oxycodone HCl/Acetaminophen [Percocet 5-325 mg Tablet -] 1 tab PO Q4H #30 tablet MDD 6 06/16/16 PMH Anemia: Yes Diabetes: Yes HTN: Yes Hypercholesterolemia: Yes - Suicide/Smoking/Psychosocial Hx Smoking History: Never smoked *Physical Exam - Vital Signs Last Vital Signs Temp Pulse Resp BP Pulse Ox 98.4 F 79 20 127/61 100 08/04/17 08:21 08/04/17 11:27 08/04/17 11:27 08/04/17 11:27 08/04/17 11:27 Cor: RSR, No murmurs, No gallops Lungs: Clear to P&A Abd: Soft, Normal bowel sounds, No organomegaly Ext:No significant edema Laboratory Results 08/04/17 08/04/17 08/04/17 09:45 09:45 09:45 PT with INR INR D-Dimer 5940 H Sodium 138 Potassium 4.2 Chloride 104 Carbon Dioxide 29 Anion Gap 5 L BUN 12 Creatinine 1.0 Creat Clearance w eGFR 59.43 Random Glucose 227 H Calcium 8.5 Total Bilirubin 0.4 AST 11 L ALT 18 Alkaline Phosphatase 156 H Creatine Kinase 157 Creatine Kinase Index 0.6 CK-MB (CK-2) < 1.000 Troponin I < 0.02 Total Protein 7.1 Albumin 3.0 L Urine Color Colorless Urine Appearance Clear Urine pH 7.0 Ur Specific [place] 1.021 Urine Protein Negative Urine Glucose (UA) 3+ H Urine Ketones Negative Urine Blood Negative Urine Nitrite Negative Urine Bilirubin Negative Urine Urobilinogen Negative Ur Leukocyte Esterase Negative 08/04/17 09:45 PT with INR 11.50 INR 1.02 D-Dimer Sodium Potassium Chloride Carbon Dioxide Anion Gap BUN Creatinine Creat Clearance w eGFR Random Glucose Calcium Total Bilirubin AST ALT Alkaline Phosphatase Creatine Kinase Creatine Kinase Index CK-MB (CK-2) Troponin I Total Protein Albumin Urine Color Urine Appearance Urine pH Ur Specific [place] Urine Protein Urine Glucose (UA) Urine Ketones Urine Blood Urine Nitrite Urine Bilirubin Urine Urobilinogen Ur Leukocyte Esterase 08/04/17 09:45 RBC 4.62 MCV 92.2 MCHC 32.7 RDW 14.8 D MPV 10.3 D Neutrophils % 61.7 D Lymphocytes % 28.8 D Monocytes % 6.7 Eosinophils % 2.2 D Basophils % 0.6 Chest CTA shows a non-opacification of the anterior medial segmental pulmonary artery branch which is concerning for acute pulmonary embolus. Subsegmental atelectasis versus infarction and anterior left lung base. Web within the left lower lobe pulmonary artery may be the chronic sequela of the prior pulmonary embolus. On incidental finding patient also has a small hiatal hernia and a 1.5 liver lesion which may be a cyst or hemangioma which is recommending a nonemergent outpatient liver sonogram. There is also a subcentimeter left thyroid nodule. A/P 46 y/o patient with obesity, eczema, DM, HTn, hypercholesterolemia, no obvious provoking factor, presents with RLE pain of few weeks and then developed acute Left sided chest pain. Noprior h/o VTE CTA --left segmental pulmonary artery acute embolism ? web s/o prior episode. Under distended esophagus/hiatal hernia??liver cyst/hemangioma ( needs sonogram) //left thyroid nodule duplex neg. On heparin drip Discussed pros/cons of coumadin vs NOACs. Lack of data for NOACs in obese patients , but being used discussed lack of antidote with NOACs Also discussed their timely onset of action/convenience Discussed lag in onset of action wtih coumadin/dietry restrictions /need for frequent monitoring Patient to decide
[2017-08-04] MEDS: CARVEDILOL 12.5 MG TABLET (FP) PO SCH (23:57)
[2017-08-04] MEDS: ATORVASTATIN CA 10 MG TABLET (FP) PO SCH (23:57)
[2017-08-05] MEDS: glipiZIDE 10 MG TABLET (FP) PO SCH ×2 (07:23→17:24)
[2017-08-05 08:33] LABS: BASO % 1.1 % (0-2.0); EOS % 1.6 % (0-4.5); HEMATOCRIT 44.1 % (32.4-45.2); HEMOGLOBIN 14.5 GM/dL (10.7-15.3); LYMPH % 28.7 % (8-40); MCH 30.3 pg (25.7-33.7); MEAN CELL VOLUME 91.9 fl (80-96); MEAN PLT VOLUME 10.4 fl (7.5-11.1); MONO % 4.2 % (3.8-10.2); NEUT % 64.4 % (42.8-82.8); PLATELET COUNT 209 K/MM3 (134-434); RDW 14.6 % (11.6-15.6); WHITE BLOOD COUNT 8.3 K/mm3 (4.0-10.0)
[2017-08-05 09:02] LABS: CHLORIDE 101 mmol/L (98-107); POTASSIUM 4.3 mmol/L (3.5-5.1); SODIUM 134 mmol/L (136-145)
[2017-08-05] MEDS: HYDROCHLOROTHIAZIDE 12.5 MG CAPSULE (FP) PO SCH (09:16)
[2017-08-05] MEDS: CARVEDILOL 12.5 MG TABLET (FP) PO SCH ×2 (09:17→21:41)
[2017-08-05] MEDS: PANTOPRAZOLE 40 MG TABLET (FP) PO SCH (09:17)
[2017-08-05] MEDS ORDERED: PATIENT'S OWN MEDICATION (NON-FORMULARY) (Canagliflozin [Invokana] 100 MG) PO SCH (10:00)
[2017-08-05] MEDS ORDERED: PATIENT'S OWN MEDICATION (NON-FORMULARY) (Losartan/Hydrochlorothiazide [Losartan-Hctz 100- PO SCH (10:00)
[2017-08-05] MEDS ORDERED: LOSARTAN POTASSIUM 100 MG TABLET PO SCH (10:00)
[2017-08-05 10:15] LABS: ALBUMIN 3.2 g/dl (3.4-5.0); ALK PHOS 166 U/L (45-117); ANION GAP 8 (8-16); BILIRUBIN,TOTAL 0.5 mg/dL (0.2-1.0); BLOOD UREA NITROGEN 12 mg/dL (7-18); CALCIUM 9.2 mg/dL (8.5-10.1); CO2 25 mmol/L (21-32); CREATININE 1.1 mg/dL (0.55-1.02); GLUCOSE,RANDOM 260 mg/dL (74-106); SGOT/AST 15 U/L (15-37); SGPT/ALT 18 U/L (12-78); TOT PROT 7.6 g/dl (6.4-8.2)
--- NOTE | 2017-08-05 12:23 | CON.PULM ---
Consult Consult Specialty:: PULMONARY Referred by:: Dr. Bone Reason for Consultation:: PE - History of Present Illness Chief Complaint: shortness of breath History of Present Illness: 46yo female with h/o HTN, DM who was awoken from her sleep with shortness of breath and sharp chest pain. No cough, palpitations. No fevers, chills or sweats. Reports nausea without vomiting. Reports right leg swelling starting 2 months ago for which she had a negative ultrasound. Followed up with her PMD who changed some of her antihypertensives. Denies any prior history of clots. She is a never smoker, does not take any hormone replacements or contraceptives. No family history of clots. Father with prostate ca. She does not lead a sedentary lifestyle, works with children. She is up to date on her mammogram, pap smear and had a colonoscopy 2 years ago showing 2 small polyps. Had a hysterectomy last year for fibroids. - History Source History Provided By: Patient, Medical Record Limitations to Obtaining History: No Limitations - Past Medical History Cardio/Vascular: Yes: HTN ...LMP: 05/27/16 Endocrine: Yes: Diabetes Mellitus - Alcohol/Substance Use Hx Alcohol Use: No - Smoking History Smoking history: Never smoked Have you smoked in the past 12 months: No Home Medications - Allergies Allergies/Adverse Reactions: Allergies Allergy/AdvReac Type Severity Reaction Status Date / Time No Known Allergies Allergy Verified 08/04/17 08:20 - Home Medications Home Medications: Ambulatory Orders Carvedilol [Coreg] 12.5 mg PO BID 03/20/15 Glipizide 10 mg PO BID 03/20/15 Simvastatin [Zocor -] 20 mg PO HS 03/20/15 Canagliflozin [Invokana] 100 mg PO DAILY 06/10/16 Ibuprofen [Motrin -] 600 mg PO QID PRN #28 tablet 06/16/16 Losartan/Hydrochlorothiazide [Losartan-Hctz 100-12.5 mg Tab] 1 each PO DAILY Omeprazole 40 mg PO DAILY 08/04/17 Review of Systems - Review of Systems Constitutional: denies: Chills, Fever Eyes: denies: Recent Change in Vision HENT: denies: Nasal Congestion, Throat Pain Neck: denies: Stiffness, Tenderness Cardiovascular: reports: Chest Pain, Edema, Shortness of Breath. denies: Palpitations Respiratory: reports: SOB. denies: Cough, Hemoptysis, Wheezing Gastrointestinal: reports: Nausea. denies: Abdominal Pain, Vomiting Genitourinary: denies: Dysuria, Hematuria Neurological: denies: Dizziness, Headache Physical Exam Vital Sings: Vital Signs Temperature 97.9 F 08/05/17 09:15 Pulse Rate 89 08/05/17 09:15 Respiratory Rate 16 08/05/17 09:15 Blood Pressure 116/66 08/05/17 09:15 O2 Sat by Pulse Oximetry (%) 98 08/05/17 09:15 Constitutional: Yes: No Distress, Calm Eyes: Yes: Conjunctiva Clear, EOM Intact HENT: Yes: Atraumatic, Normocephalic Neck: Yes: Supple, Trachea Midline Cardiovascular: Yes: Regular Rate and Rhythm Respiratory: Yes: Regular, CTA Bilaterally ...Clubbing: No Gastrointestinal: Yes: Normal Bowel Sounds, Soft, Abdomen, Obese. No: Tenderness Edema: Yes (trace) Labs: CBC, BMP 08/05/17 07:41 08/05/17 07:45 Imaging - Results Cat Scan: Report Reviewed, Image Reviewed Problem List - Problems (1) Chest pain Code(s): R07.9 - CHEST PAIN, UNSPECIFIED (2) Pulmonary emboli Code(s): I26.99 - OTHER PULMONARY EMBOLISM WITHOUT ACUTE COR PULMONALE (3) Hypertension Code(s): I10 - ESSENTIAL (PRIMARY) HYPERTENSION (4) Diabetes Code(s): E11.9 - TYPE 2 DIABETES MELLITUS WITHOUT COMPLICATIONS Assessment/Plan Acute Subsegmental Pulmonary Embolism Morbid Obesity HTN DM - continue anticoagulation, favor NOAC - would anticoagulate for at least 6 months for unprovoked VTE - continue maintenance cancer screening as outpt Thank you for this consult Wade Vasquez MD
[2017-08-05] MEDS: HEPARIN INFUSION - 25,000 UNITS/500 ML INFUS.BAG IVPB SCH (14:30)
--- NOTE | 2017-08-05 16:00 | PN ---
Progress Note, Physician - Current Medication List Current Medications: Active Medications Atorvastatin Calcium (Lipitor -) 10 mg PO HS [facility] Last Admin: 08/04/17 23:57 Dose: 10 mg Carvedilol (Coreg -) 12.5 mg PO BID [facility] Last Admin: 08/05/17 09:17 Dose: 12.5 mg Glipizide (Glucotrol -) 10 mg PO BIDAC [facility] Last Admin: 08/05/17 07:23 Dose: 10 mg Heparin Sodium (Porcine) (Heparin -) 1,000 unit IVPUSH PRN PRN PRN Reason: Heparin Heparin Sodium (Porcine) (Heparin -) 5,000 unit IVPUSH PRN PRN PRN Reason: Heparin Hydrochlorothiazide (Hctz -) 12.5 mg PO DAILY [facility] Last Admin: 08/05/17 09:16 Dose: 12.5 mg Heparin Sodium/Dextrose (Heparin Infusion -) 25,000 units in 500 mls @ 20 mls/ hr IVPB TITR [facility]; 1,000 UNITS/HR PRN Reason: Protocol Last Admin: 08/04/17 16:00 Dose: 1,000 units/hr, 20 mls/hr Losartan Potassium (Losartan Potassium) 100 mg PO DAILY [facility] Last Admin: 08/05/17 09:17 Dose: 100 mg Non-Formulary Medication (Canagliflozin [Invokana]) 100 mg PO DAILY [facility] Pantoprazole Sodium (Protonix -) 40 mg PO DAILY [facility] Last Admin: 08/05/17 09:17 Dose: 40 mg - Objective Vital Signs: Vital Signs Temperature 98.4 F 08/05/17 15:04 Pulse Rate 84 08/05/17 15:04 Respiratory Rate 16 08/05/17 15:04 Blood Pressure 119/69 08/05/17 15:04 O2 Sat by Pulse Oximetry (%) 99 08/05/17 15:04 Constitutional: Yes: No Distress HENT: Yes: Atraumatic Neck: Yes: Supple Cardiovascular: Yes: Regular Rate and Rhythm Respiratory: Yes: CTA Bilaterally Gastrointestinal: Yes: Normal Bowel Sounds Extremities: Yes: WNL Neurological: Yes: Alert, Oriented Labs: CBC, BMP 08/05/17 07:41 08/05/17 07:45 INR, PTT INR 1.02 (0.82-1.09) 08/04/17 09:45 Problem List - Problems (1) Chest pain Assessment/Plan: fu troponins Code(s): R07.9 - CHEST PAIN, UNSPECIFIED (2) Pulmonary emboli Assessment/Plan: iv heparin Code(s): I26.99 - OTHER PULMONARY EMBOLISM WITHOUT ACUTE COR PULMONALE (3) Diabetes Assessment/Plan: on meds, bgms stable Code(s): E11.9 - TYPE 2 DIABETES MELLITUS WITHOUT COMPLICATIONS (4) Hypercholesterolemia Assessment/Plan: on meds Code(s): E78.00 - PURE HYPERCHOLESTEROLEMIA, UNSPECIFIED (5) Hypertension Assessment/Plan: on meds Code(s): I10 - ESSENTIAL (PRIMARY) HYPERTENSION
--- NOTE | 2017-08-05 16:30 | PN ---
Progress Note (short form) - Note Progress Note: seen and examined . O/E; General: NAD HEENT: NCAT lungs: CTA b/l Cor;RRR abd: soft NT ND LE: no CCE Last Vital Signs Temp Pulse Resp BP Pulse Ox 98.4 F 84 16 119/69 99 08/05/17 15:04 08/05/17 15:04 08/05/17 15:04 08/05/17 15:04 08/05/17 15:04 CBC, BMP 08/05/17 07:41 08/05/17 07:45 Current Medications Generic Name Dose Route Start Last Admin Trade Name Freq PRN Reason Stop Dose Admin Atorvastatin Calcium 10 mg 08/04/17 22:00 08/04/17 23:57 Lipitor - PO 10 mg HS KATELYN Administration Carvedilol 12.5 mg 08/04/17 22:00 08/05/17 09:17 Coreg - PO 12.5 mg BID KATELYN Administration Glipizide 10 mg 08/05/17 07:00 08/05/17 07:23 Glucotrol - PO 10 mg BIDAC KATELYN Administration Heparin Sodium (Porcine) 1,000 unit 08/04/17 15:03 Heparin - IVPUSH PRN PRN Heparin Heparin Sodium (Porcine) 5,000 unit 08/04/17 20:36 Heparin - IVPUSH PRN PRN Heparin Hydrochlorothiazide 12.5 mg 08/05/17 10:00 08/05/17 09:16 Hctz - PO 12.5 mg DAILY KATELYN Administration Heparin Sodium/Dextrose 25,000 units in 500 mls @ 20 mls/hr 08/04/17 15:15 16:00 Heparin Infusion - IVPB 1,000 units/hr TITR KATELYN 20 mls/hr Protocol Administration 1,000 UNITS/HR Losartan Potassium 100 mg 08/05/17 10:00 08/05/17 09:17 Losartan Potassium PO 100 mg DAILY KATELYN Administration Non-Formulary Medication 100 mg 08/05/17 10:00 Canagliflozin [Invokana] PO DAILY KATELYN Pantoprazole Sodium 40 mg 08/05/17 10:00 08/05/17 09:17 Protonix - PO 40 mg DAILY KATELYN Administration PE: candidacy for NOACs, dimitry eliquis based on recent retrospective review. pt agreeing, she decided for NOACs yet to be sent to pharmacy
--- NOTE | 2017-08-05 17:24 | CON.CARD ---
Consult Consult Specialty:: Cardiology Referred by:: Dr. Bone Reason for Consultation:: Cardiac evaluation - History of Present Illness Chief Complaint: SOB History of Present Illness: Patient is a 46 year old female with underlying history of HTN and diabetes mellitus who presents with shortness of breath and chest pain described sharp. She reports right leg swelling for past 2 months. She denies fever or chills. She denies paroxysmal nocturnal dyspnea or orthopnea. She denies headache or lightheadedness. She denies nausea, vomiting, diarrhea or abdominal pain. CTA of chest reveals possible pulmonary embolism. She denies any family history of PE or DVT. - History Source History Provided By: Patient, Medical Record Limitations to Obtaining History: No Limitations - Past Medical History Cardio/Vascular: Yes: HTN ...LMP: 05/27/16 Endocrine: Yes: Diabetes Mellitus - Alcohol/Substance Use Hx Alcohol Use: No - Smoking History Smoking history: Never smoked Have you smoked in the past 12 months: No Home Medications - Allergies Allergies/Adverse Reactions: Allergies Allergy/AdvReac Type Severity Reaction Status Date / Time No Known Allergies Allergy Verified 08/04/17 08:20 - Home Medications Home Medications: Ambulatory Orders Carvedilol [Coreg] 12.5 mg PO BID 03/20/15 Glipizide 10 mg PO BID 03/20/15 Simvastatin [Zocor -] 20 mg PO HS 03/20/15 Canagliflozin [Invokana] 100 mg PO DAILY 06/10/16 Ibuprofen [Motrin -] 600 mg PO QID PRN #28 tablet 06/16/16 Losartan/Hydrochlorothiazide [Losartan-Hctz 100-12.5 mg Tab] 1 each PO DAILY Omeprazole 40 mg PO DAILY 08/04/17 Review of Systems - Review of Systems Constitutional: denies: Chills, Fever Cardiovascular: reports: Chest Pain, Shortness of Breath. denies: Palpitations Respiratory: reports: SOB. denies: Cough, Hemoptysis, Orthopnea, PND Gastrointestinal: denies: Abdominal Pain, Constipation, Diarrhea, Melena, Nausea , Rectal Bleeding, Vomiting Neurological: denies: Dizziness, Headache, Seizure, Syncope Vital Signs: Vital Signs Temperature 98.4 F 08/05/17 15:04 Pulse Rate 84 08/05/17 15:04 Respiratory Rate 16 08/05/17 15:04 Blood Pressure 119/69 08/05/17 15:04 O2 Sat by Pulse Oximetry (%) 99 08/05/17 15:04 HENT: Yes: Atraumatic Neck: Yes: Supple Respiratory: Yes: Diminished Gastrointestinal: Yes: Normal Bowel Sounds, Soft, Abdomen, Obese. No: Tenderness Cardiovascular: Yes: Regular Rate and Rhythm JVD: No Carotid Bruit: No PMI: Non-Displaced Heart Sounds: Yes: S1, S2. No: Gallop Edema: Yes - Other Data Labs, Other Data: CBC, BMP 08/05/17 07:41 08/05/17 07:45 INR, PTT INR 1.02 (0.82-1.09) 08/04/17 09:45 Troponin, BNP 08/04/17 08/05/17 22:15 07:45 Troponin I < 0.02 < 0.02 NSR, incomplete RBBB Imaging - Results Chest X-ray: Report Reviewed (Unremarkable) Cat Scan: Report Reviewed (Chest CT noted) Ultrasound: Report Reviewed (No DVT) EKG: Report Reviewed Problem List - Problems (1) Chest pain Code(s): R07.9 - CHEST PAIN, UNSPECIFIED (2) Diabetes Code(s): E11.9 - TYPE 2 DIABETES MELLITUS WITHOUT COMPLICATIONS (3) Hypertension Code(s): I10 - ESSENTIAL (PRIMARY) HYPERTENSION (4) Pulmonary emboli Code(s): I26.99 - OTHER PULMONARY EMBOLISM WITHOUT ACUTE COR PULMONALE (5) Hypercholesterolemia Code(s): E78.00 - PURE HYPERCHOLESTEROLEMIA, UNSPECIFIED Assessment/Plan 1. Pulmonary embolism (Unprovoked) 2. HTN 3. Hypercholesterolemia 4. DM 5. Exogenous obesity PLAN: 1. Anticoagulation currently on IV Heparin, but patient ideal candidate for NOAC - Eliquis 10 mg BID for 1 week then 5 mg BID to be given for at least 6 months 2. Continue Carvedilol and Losartan 3. Transthoracic echocardiography to assess LV/RV and valvular function 4. Consider hematologic work up for hypercoagulable state Further plans are to follow Des Rod MD
[2017-08-05] MEDS: ATORVASTATIN CA 10 MG TABLET (FP) PO SCH (21:41)
[2017-08-06] MEDS: glipiZIDE 10 MG TABLET (FP) PO SCH ×2 (06:38→17:54)
--- NOTE | 2017-08-06 08:07 | PN ---
Progress Note (short form) - Note Progress Note: Chief Complaint: Events noted, notes reviewed, continues to report persistence of dyspnea, denies any chest discomfort History of Present Illness: Seen and examined on telemetry. Events noted, notes reviewed, continues to report persistence of dyspnea, denies any chest discomfort Medications: Current Medications Atorvastatin Calcium (Lipitor -) 10 mg PO HS [facility] Last Admin: 08/05/17 21:41 Dose: 10 mg Carvedilol (Coreg -) 12.5 mg PO BID [facility] Last Admin: 08/05/17 21:41 Dose: 12.5 mg Glipizide (Glucotrol -) 10 mg PO BIDAC [facility] Last Admin: 08/06/17 06:38 Dose: 10 mg Heparin Sodium (Porcine) (Heparin -) 1,000 unit IVPUSH PRN PRN PRN Reason: Heparin Heparin Sodium (Porcine) (Heparin -) 5,000 unit IVPUSH PRN PRN PRN Reason: Heparin Last Admin: 08/05/17 23:00 Dose: 5,000 unit Hydrochlorothiazide (Hctz -) 12.5 mg PO DAILY [facility] Last Admin: 08/05/17 09:16 Dose: 12.5 mg Heparin Sodium/Dextrose (Heparin Infusion -) 25,000 units in 500 mls @ 20 mls/ hr IVPB TITR [facility]; Protocol Last Titration: 08/05/17 23:00 Dose: 1,250 units/hr, 25 mls/hr Losartan Potassium (Cozaar -) 100 mg PO DAILY [facility] Non-Formulary Medication (Canagliflozin [Invokana]) 100 mg PO DAILY [facility] Pantoprazole Sodium (Protonix -) 40 mg PO DAILY [facility] Last Admin: 08/05/17 09:17 Dose: 40 mg Review of Systems - Review of Systems Constitutional: denies: Chills, Fever Cardiovascular: as noted above Respiratory: reports: dyspnea denies: Cough or sputum production Gastrointestinal: denies: Abdominal Pain, Constipation, Diarrhea, Nausea or Vomiting Neurological: denies: Dizziness or Headache Vital Signs: Last Vital Signs Temp Pulse Resp BP Pulse Ox 97.9 F 68 20 124/78 98 08/06/17 06:00 08/06/17 06:00 08/06/17 06:00 08/06/17 06:00 08/05/17 21:00 Intake & Output 08/03/17 08/04/17 08/05/17 05/23/18 23:59 23:59 23:59 23:59 Intake Total 622 585 Balance 622 585 Weight 260 lb 260 lb HENT: Atraumatic Neck: Supple negative JVD Respiratory: Diminished breath sounds at the bases Cardiovascular: S1 S2 Regular Rate and Rhythm Gastrointestinal: Soft, Benign Normal Bowel Sounds Ext: No Edema Labs: CBC, BMP 08/05/17 07:41 08/05/17 07:45 Hepatic Panel Total Bilirubin 0.5 mg/dL (0.2-1.0) D 08/05/17 07:45 AST 15 U/L (15-37) 08/05/17 07:45 ALT 18 U/L (12-78) 08/05/17 07:45 Alkaline Phosphatase 166 U/L (45-117) H 08/05/17 07:45 Albumin 3.2 g/dl (3.4-5.0) L 08/05/17 07:45 INR, PTT INR 1.02 (0.82-1.09) 08/04/17 09:45 Assessment/Plan ASSESSMENT: 1. Pulmonary thrombo-embolism (Unprovoked) 2. HTN 3. Diabetes mellitus 4. Hypercholesterolemia 5. Exogenous obesity PLAN: 1. Recommend initiation of DOAC therapy with Eliquis 10 mg twice daily for 1 week then 5 mg twice daily, duration of therapy to be decided 6 months versus lifelong since it was an unprovoked event 2. Continue Carvedilol 3. Continue Losartan 4. Transthoracic echocardiography to assess LV/RV and valvular functions 5. Hematology evaluation for hypercoagulable state, to be performed as outpatient Gerardo Mckenna MD
--- NOTE | 2017-08-06 10:04 | PN ---
Progress Note, Physician History of Present Illness: PULMONARY ALERT,FEELING BETTER,LESS CP ,-SOB - Current Medication List Current Medications: Active Medications Atorvastatin Calcium (Lipitor -) 10 mg PO HS [facility] Last Admin: 08/05/17 21:41 Dose: 10 mg Carvedilol (Coreg -) 12.5 mg PO BID [facility] Last Admin: 08/05/17 21:41 Dose: 12.5 mg Glipizide (Glucotrol -) 10 mg PO BIDAC [facility] Last Admin: 08/06/17 06:38 Dose: 10 mg Heparin Sodium (Porcine) (Heparin -) 1,000 unit IVPUSH PRN PRN PRN Reason: Heparin Heparin Sodium (Porcine) (Heparin -) 5,000 unit IVPUSH PRN PRN PRN Reason: Heparin Last Admin: 08/05/17 23:00 Dose: 5,000 unit Hydrochlorothiazide (Hctz -) 12.5 mg PO DAILY [facility] Last Admin: 08/05/17 09:16 Dose: 12.5 mg Heparin Sodium/Dextrose (Heparin Infusion -) 25,000 units in 500 mls @ 20 mls/ hr IVPB TITR [facility]; Protocol Last Titration: 08/05/17 23:00 Dose: 1,250 units/hr, 25 mls/hr Losartan Potassium (Cozaar -) 100 mg PO DAILY [facility] Non-Formulary Medication (Canagliflozin [Invokana]) 100 mg PO DAILY [facility] Pantoprazole Sodium (Protonix -) 40 mg PO DAILY [facility] Last Admin: 08/05/17 09:17 Dose: 40 mg - Objective Vital Signs: Vital Signs Temperature 97.9 F 08/06/17 06:00 Pulse Rate 68 08/06/17 06:00 Respiratory Rate 20 08/06/17 06:00 Blood Pressure 124/78 08/06/17 06:00 O2 Sat by Pulse Oximetry (%) 98 08/05/17 21:00 Constitutional: Yes: Well Nourished, Calm Eyes: Yes: WNL HENT: Yes: WNL Neck: Yes: WNL Cardiovascular: Yes: Regular Rate and Rhythm, S1, S2 Respiratory: Yes: CTA Bilaterally Gastrointestinal: Yes: Normal Bowel Sounds, Soft Extremities: Yes: WNL Edema: Yes Labs: CBC, BMP Assessment/Plan Problem List - Problems (1) Chest pain Code(s): R07.9 - CHEST PAIN, UNSPECIFIED (2) Pulmonary emboli Code(s): I26.99 - OTHER PULMONARY EMBOLISM WITHOUT ACUTE COR PULMONALE (3) Hypertension Code(s): I10 - ESSENTIAL (PRIMARY) HYPERTENSION (4) Diabetes Code(s): E11.9 - TYPE 2 DIABETES MELLITUS WITHOUT COMPLICATIONS Assessment/Plan Acute Subsegmental Pulmonary Embolism Morbid Obesity HTN DM - anticoagulation, favor NOAC - would anticoagulate for at least 6 months for unprovoked VTE - continue maintenance cancer screening as outpt - w/u for hypercoagulable state as outpatient DR KATHLEEN
[2017-08-06] MEDS: LOSARTAN POTASSIUM 50 MG TABLET (FP) PO SCH (10:18)
[2017-08-06] MEDS: CARVEDILOL 12.5 MG TABLET (FP) PO SCH ×2 (10:19→22:12)
[2017-08-06] MEDS: HYDROCHLOROTHIAZIDE 12.5 MG CAPSULE (FP) PO SCH (10:19)
[2017-08-06] MEDS: PANTOPRAZOLE 40 MG TABLET (FP) PO SCH (10:19)
--- NOTE | 2017-08-06 12:16 | PN ---
Progress Note (short form) - Note Progress Note: seen and examined . O/E; General: NAD HEENT: NCAT lungs: CTA b/l Cor;RRR abd: soft NT ND LE: no CCE Last Vital Signs Temp Pulse Resp BP Pulse Ox 98.4 F 84 16 119/69 99 08/05/17 15:04 08/05/17 15:04 08/05/17 15:04 08/05/17 15:04 08/05/17 15:04 CBC, BMP 08/05/17 07:41 08/05/17 07:45 Current Medications Generic Name Dose Route Start Last Admin Trade Name Freq PRN Reason Stop Dose Admin Atorvastatin Calcium 10 mg 08/04/17 22:00 08/04/17 23:57 Lipitor - PO 10 mg HS KATELYN Administration Carvedilol 12.5 mg 08/04/17 22:00 08/05/17 09:17 Coreg - PO 12.5 mg BID KATELYN Administration Glipizide 10 mg 08/05/17 07:00 08/05/17 07:23 Glucotrol - PO 10 mg BIDAC KATELYN Administration Heparin Sodium (Porcine) 1,000 unit 08/04/17 15:03 Heparin - IVPUSH PRN PRN Heparin Heparin Sodium (Porcine) 5,000 unit 08/04/17 20:36 Heparin - IVPUSH PRN PRN Heparin Hydrochlorothiazide 12.5 mg 08/05/17 10:00 08/05/17 09:16 Hctz - PO 12.5 mg DAILY KATELYN Administration Heparin Sodium/Dextrose 25,000 units in 500 mls @ 20 mls/hr 08/04/17 15:15 16:00 Heparin Infusion - IVPB 1,000 units/hr TITR KATELYN 20 mls/hr Protocol Administration 1,000 UNITS/HR Losartan Potassium 100 mg 08/05/17 10:00 08/05/17 09:17 Losartan Potassium PO 100 mg DAILY KATELYN Administration Non-Formulary Medication 100 mg 08/05/17 10:00 Canagliflozin [Invokana] PO DAILY K[facility]N Pantoprazole Sodium 40 mg 08/05/17 10:00 08/05/17 09:17 Protonix - PO 40 mg DAILY KATELYN Administration PE: candidacy for NOACs, dimitry eliquis based on recent retrospective review. pt agreeing, she decided for NOACs sent to pharmacy eliquis 10mg bid x 7d, then 5mg daily-explained to pt start in-house from tomorrow hold hep vandana 6am jonh as an OP d/w RN
[2017-08-06] MEDS: HEPARIN INFUSION - 25,000 UNITS/500 ML INFUS.BAG IVPB SCH (13:00)
--- NOTE | 2017-08-06 18:49 | PN ---
Progress Note, Physician History of Present Illness: feeling better - Current Medication List Current Medications: Active Medications Apixaban (Eliquis -) 5 mg PO BID [facility] Atorvastatin Calcium (Lipitor -) 10 mg PO HS [facility] Last Admin: 08/05/17 21:41 Dose: 10 mg Carvedilol (Coreg -) 12.5 mg PO BID [facility] Last Admin: 08/06/17 10:19 Dose: 12.5 mg Glipizide (Glucotrol -) 10 mg PO BIDAC [facility] Last Admin: 08/06/17 17:54 Dose: 10 mg Heparin Sodium (Porcine) (Heparin -) 1,000 unit IVPUSH PRN PRN PRN Reason: Heparin Heparin Sodium (Porcine) (Heparin -) 5,000 unit IVPUSH PRN PRN PRN Reason: Heparin Last Admin: 08/05/17 23:00 Dose: 5,000 unit Hydrochlorothiazide (Hctz -) 12.5 mg PO DAILY [facility] Last Admin: 08/06/17 10:19 Dose: 12.5 mg Heparin Sodium/Dextrose (Heparin Infusion -) 25,000 units in 500 mls @ 20 mls/ hr IVPB TITR [facility]; Protocol Last Admin: 08/06/17 13:00 Dose: 1,400 units/hr, 28 mls/hr Losartan Potassium (Cozaar -) 100 mg PO DAILY [facility] Last Admin: 08/06/17 10:18 Dose: 100 mg Non-Formulary Medication (Canagliflozin [Invokana]) 100 mg PO DAILY [facility] Pantoprazole Sodium (Protonix -) 40 mg PO DAILY [facility] Last Admin: 08/06/17 10:19 Dose: 40 mg - Objective Vital Signs: Vital Signs Temperature 97.9 F 08/06/17 17:00 Pulse Rate 80 08/06/17 17:00 Respiratory Rate 20 08/06/17 17:00 Blood Pressure 147/69 08/06/17 17:00 O2 Sat by Pulse Oximetry (%) 97 08/06/17 09:00 Constitutional: Yes: No Distress HENT: Yes: Atraumatic Neck: Yes: Supple Cardiovascular: Yes: Regular Rate and Rhythm Respiratory: Yes: CTA Bilaterally Gastrointestinal: Yes: Normal Bowel Sounds Extremities: Yes: WNL Edema: No Neurological: Yes: Alert, Oriented Labs: CBC, BMP 08/05/17 07:41 08/05/17 07:45 INR, PTT INR 1.02 (0.82-1.09) 08/04/17 09:45 Problem List - Problems (1) Chest pain Assessment/Plan: resolved Code(s): R07.9 - CHEST PAIN, UNSPECIFIED (2) Pulmonary emboli Assessment/Plan: on iv heparin Code(s): I26.99 - OTHER PULMONARY EMBOLISM WITHOUT ACUTE COR PULMONALE (3) Diabetes Assessment/Plan: on meds, bgms stable Code(s): E11.9 - TYPE 2 DIABETES MELLITUS WITHOUT COMPLICATIONS (4) Hypercholesterolemia Assessment/Plan: on meds Code(s): E78.00 - PURE HYPERCHOLESTEROLEMIA, UNSPECIFIED (5) Hypertension Assessment/Plan: on meds Code(s): I10 - ESSENTIAL (PRIMARY) HYPERTENSION
[2017-08-06] MEDS: ATORVASTATIN CA 10 MG TABLET (FP) PO SCH (22:12)
[2017-08-06] MEDS: ACETAMINOPHEN 325 MG TABLET (FP) PO PRN (22:12)
[2017-08-07] MEDS: glipiZIDE 10 MG TABLET (FP) PO SCH ×2 (06:23→17:40)
--- NOTE | 2017-08-07 09:29 | PN ---
Progress Note, Physician Chief Complaint: Events noted Complains of intermittent right sided chest pain Breathing comfortable History of Present Illness: Patient was seen and examined. Awake and alert. Chart was reviewed As outlined. No palpitations - Current Medication List Current Medications: Active Medications Acetaminophen (Tylenol -) 650 mg PO Q6H PRN PRN Reason: FEVER Last Admin: 08/06/17 22:12 Dose: 650 mg Apixaban (Eliquis -) 5 mg PO BID [facility] Atorvastatin Calcium (Lipitor -) 10 mg PO HS [facility] Last Admin: 08/06/17 22:12 Dose: 10 mg Carvedilol (Coreg -) 12.5 mg PO BID [facility] Last Admin: 08/06/17 22:12 Dose: 12.5 mg Glipizide (Glucotrol -) 10 mg PO BIDAC [facility] Last Admin: 08/07/17 06:23 Dose: 10 mg Heparin Sodium (Porcine) (Heparin -) 1,000 unit IVPUSH PRN PRN PRN Reason: Heparin Heparin Sodium (Porcine) (Heparin -) 5,000 unit IVPUSH PRN PRN PRN Reason: Heparin Last Admin: 08/05/17 23:00 Dose: 5,000 unit Hydrochlorothiazide (Hctz -) 12.5 mg PO DAILY [facility] Last Admin: 08/06/17 10:19 Dose: 12.5 mg Heparin Sodium/Dextrose (Heparin Infusion -) 25,000 units in 500 mls @ 20 mls/ hr IVPB TITR [facility]; Protocol Last Titration: 08/07/17 06:00 Dose: 0 units/hr, 0 mls/hr Losartan Potassium (Cozaar -) 100 mg PO DAILY [facility] Last Admin: 08/06/17 10:18 Dose: 100 mg Non-Formulary Medication (Canagliflozin [Invokana]) 100 mg PO DAILY [facility] Pantoprazole Sodium (Protonix -) 40 mg PO DAILY [facility] Last Admin: 08/06/17 10:19 Dose: 40 mg - Objective Vital Signs: Vital Signs Temperature 97.7 F 08/07/17 06:00 Pulse Rate 75 08/07/17 06:00 Respiratory Rate 18 08/07/17 06:00 Blood Pressure 106/60 08/07/17 06:00 O2 Sat by Pulse Oximetry (%) 96 08/06/17 21:00 HENT: Yes: Atraumatic Neck: Yes: Supple Cardiovascular: Yes: Regular Rate and Rhythm, S1, S2 Respiratory: Yes: CTA Bilaterally Gastrointestinal: Yes: Normal Bowel Sounds, Soft. No: Tenderness Edema: Yes Edema: LLE: 1+, RLE: 1+ Additional Findings/Remarks: - Review of Systems Constitutional: denies: Chills, Fever Cardiovascular: reports: Chest Pain, Shortness of Breath. denies: Palpitations Respiratory: reports: SOB. denies: Cough, Hemoptysis, Orthopnea, PND Gastrointestinal: denies: Abdominal Pain, Constipation, Diarrhea, Melena, Nausea , Rectal Bleeding, Vomiting Neurological: denies: Dizziness, Headache, Seizure, Syncope Problem List - Problems (1) Chest pain Code(s): R07.9 - CHEST PAIN, UNSPECIFIED (2) Diabetes Code(s): E11.9 - TYPE 2 DIABETES MELLITUS WITHOUT COMPLICATIONS (3) Hypertension Code(s): I10 - ESSENTIAL (PRIMARY) HYPERTENSION (4) Pulmonary emboli Code(s): I26.99 - OTHER PULMONARY EMBOLISM WITHOUT ACUTE COR PULMONALE (5) Hypercholesterolemia Code(s): E78.00 - PURE HYPERCHOLESTEROLEMIA, UNSPECIFIED Assessment/Plan 1. Pulmonary embolism (Unprovoked) now on NOAC 2. RV systolic dysfunction due to above 3. HTN 4. Hypercholesterolemia 5. DM 6. Exogenous obesity PLAN: 1. Anticoagulation currently on Eliquis 10 mg BID for 1 week then 5 mg BID to be given for at least 6 months. Heparin IV stopped 2. Continue Carvedilol and Losartan. Continue Atorvastatin and HCTZ 3. Transthoracic echocardiography was reviewed 4. Consider hematologic work up for hypercoagulable state, can be done as outpatient Further plans are to follow. Patient is to follow up in office. Discharge planning if clinically stable Patient was seen, examined and counseled for 35 min Des Rod MD
[2017-08-07] MEDS ORDERED: APIXABAN 5 MG TABLET PO SCH ×2 (10:00→13:42)
[2017-08-07] MEDS: HYDROCHLOROTHIAZIDE 12.5 MG CAPSULE (FP) PO SCH (10:04)
[2017-08-07] MEDS: PANTOPRAZOLE 40 MG TABLET (FP) PO SCH (10:04)
[2017-08-07] MEDS: CARVEDILOL 12.5 MG TABLET (FP) PO SCH ×2 (10:08→21:11)
[2017-08-07] MEDS: LOSARTAN POTASSIUM 50 MG TABLET (FP) PO SCH (10:08)
--- NOTE | 2017-08-07 12:18 | PN ---
Progress Note (short form) - Note Progress Note: PULMONARY Still some chest discomfort with deep inspiration. Started on eliquis this AM. Last Vital Signs Temp Pulse Resp BP Pulse Ox 98.8 F 79 18 124/74 96 08/07/17 10:00 08/07/17 10:00 08/07/17 10:00 08/07/17 10:00 08/07/17 09:00 Gen: NAD at rest Heart: RRR Lung: decreased breath sounds at the bases Abd: soft, nontender Ext: no edema CBC, BMP 08/05/17 07:41 08/05/17 07:45 Active Medications Acetaminophen (Tylenol -) 650 mg PO Q6H PRN PRN Reason: FEVER Last Admin: 08/06/17 22:12 Dose: 650 mg Apixaban (Eliquis -) 5 mg PO BID [facility] Last Admin: 08/07/17 10:04 Dose: 5 mg Atorvastatin Calcium (Lipitor -) 10 mg PO HS [facility] Last Admin: 08/06/17 22:12 Dose: 10 mg Carvedilol (Coreg -) 12.5 mg PO BID [facility] Last Admin: 08/07/17 10:08 Dose: 12.5 mg Glipizide (Glucotrol -) 10 mg PO BIDAC [facility] Last Admin: 08/07/17 06:23 Dose: 10 mg Heparin Sodium (Porcine) (Heparin -) 1,000 unit IVPUSH PRN PRN PRN Reason: Heparin Heparin Sodium (Porcine) (Heparin -) 5,000 unit IVPUSH PRN PRN PRN Reason: Heparin Last Admin: 08/05/17 23:00 Dose: 5,000 unit Hydrochlorothiazide (Hctz -) 12.5 mg PO DAILY [facility] Last Admin: 08/07/17 10:04 Dose: 12.5 mg Heparin Sodium/Dextrose (Heparin Infusion -) 25,000 units in 500 mls @ 20 mls/ hr IVPB TITR [facility]; Protocol Last Titration: 08/07/17 06:00 Dose: 0 units/hr, 0 mls/hr Losartan Potassium (Cozaar -) 100 mg PO DAILY [facility] Last Admin: 08/07/17 10:08 Dose: 100 mg Non-Formulary Medication (Canagliflozin [Invokana]) 100 mg PO DAILY [facility] Pantoprazole Sodium (Protonix -) 40 mg PO DAILY [facility] Last Admin: 08/07/17 10:04 Dose: 40 mg A/P Acute Subsegmental Pulmonary Embolism Morbid Obesity HTN DM - continue anticoagulation - would anticoagulate for at least 6 months for unprovoked VTE - continue maintenance cancer screening as outpt Problem List - Problems (1) Chest pain Code(s): R07.9 - CHEST PAIN, UNSPECIFIED (2) Pulmonary emboli Code(s): I26.99 - OTHER PULMONARY EMBOLISM WITHOUT ACUTE COR PULMONALE (3) Hypertension Code(s): I10 - ESSENTIAL (PRIMARY) HYPERTENSION (4) Diabetes Code(s): E11.9 - TYPE 2 DIABETES MELLITUS WITHOUT COMPLICATIONS
[2017-08-07] MEDS: ACETAMINOPHEN 325 MG TABLET (FP) PO PRN (13:35)
--- NOTE | 2017-08-07 13:41 | PN ---
Progress Note (short form) - Note Progress Note: seen and examined . Off of heparin drip started eliquis Has now pain in the chest discomfort. O/E; General: NAD HEENT: NCAT lungs: CTA b/l Cor;RRR abd: soft NT ND LE: no CCE Last Vital Signs Temp Pulse Resp BP Pulse Ox 98.4 F 84 16 119/69 99 08/05/17 15:04 08/05/17 15:04 08/05/17 15:04 08/05/17 15:04 08/05/17 15:04 CBC, BMP 08/05/17 07:41 08/05/17 07:45 Current Medications Generic Name Dose Route Start Last Admin Trade Name Freq PRN Reason Stop Dose Admin Atorvastatin Calcium 10 mg 08/04/17 22:00 08/04/17 23:57 Lipitor - PO 10 mg HS [facility]N Administration Carvedilol 12.5 mg 08/04/17 22:00 08/05/17 09:17 Coreg - PO 12.5 mg BID [facility]AT[facility]N Administration Glipizide 10 mg 08/05/17 07:00 08/05/17 07:23 Glucotrol - PO 10 mg BIDAC [facility]N Administration Heparin Sodium (Porcine) 1,000 unit 08/04/17 15:03 Heparin - IVPUSH PRN PRN Heparin Heparin Sodium (Porcine) 5,000 unit 08/04/17 20:36 Heparin - IVPUSH PRN PRN Heparin Hydrochlorothiazide 12.5 mg 08/05/17 10:00 08/05/17 09:16 Hctz - PO 12.5 mg DAILY [facility] Administration Heparin Sodium/Dextrose 25,000 units in 500 mls @ 20 mls/hr 08/04/17 15:15 16:00 Heparin Infusion - IVPB 1,000 units/hr TITR [facility] 20 mls/hr Protocol Administration 1,000 UNITS/HR Losartan Potassium 100 mg 08/05/17 10:00 08/05/17 09:17 Losartan Potassium PO 100 mg DAILY [facility] Administration Non-Formulary Medication 100 mg 08/05/17 10:00 Canagliflozin [Invokana] PO DAILY [facility] Pantoprazole Sodium 40 mg 08/05/17 10:00 08/05/17 09:17 Protonix - PO 40 mg DAILY [facility] Administration PE: on eliquis now 10mg bid x7d followed by 5mg daily hypercoag w/u and age appropriate cancer screening in the OP setting. Pt aware.
[2017-08-07] MEDS ORDERED: APIXABAN 5 MG TABLET PO ONE (13:46)
--- NOTE | 2017-08-07 17:33 | DS ---
Physical Examination Vital Signs: Vital Signs Temperature 97.9 F 08/07/17 14:52 Pulse Rate 78 08/07/17 14:52 Respiratory Rate 20 08/07/17 14:52 Blood Pressure 124/76 08/07/17 14:52 O2 Sat by Pulse Oximetry (%) 96 08/07/17 09:00 Labs: CBC, BMP 08/05/17 07:41 08/05/17 07:45 Discharge Summary Reason For Visit: PULMONARY EMBOLISM Current Active Problems Chest pain (Acute) Diabetes (Acute) Hypercholesterolemia (Acute) Hypertension (Acute) Pulmonary emboli (Acute) - Instructions Referrals: Alan Engel v [Primary Care Provider] - - Home Medications Comprehensive Discharge Medication List: Ambulatory Orders Carvedilol [Coreg] 12.5 mg PO BID 03/20/15 Glipizide 10 mg PO BID 03/20/15 Simvastatin [Zocor -] 20 mg PO HS 03/20/15 Canagliflozin [Invokana] 100 mg PO DAILY 06/10/16 Ibuprofen [Motrin -] 600 mg PO QID PRN #28 tablet 06/16/16 Losartan/Hydrochlorothiazide [Losartan-Hctz 100-12.5 mg Tab] 1 each PO DAILY Omeprazole 40 mg PO DAILY 08/04/17 Apixaban [Eliquis -] 10 mg PO BID #14 tablet 08/07/17
--- NOTE | 2017-08-07 19:15 | PN ---
Progress Note, Physician Chief Complaint: feeling good no chest pain - Current Medication List Current Medications: Active Medications Acetaminophen (Tylenol -) 650 mg PO Q6H PRN PRN Reason: FEVER Last Admin: 08/07/17 13:35 Dose: 650 mg Apixaban (Eliquis -) 10 mg PO BID [facility] Atorvastatin Calcium (Lipitor -) 10 mg PO HS [facility] Last Admin: 08/06/17 22:12 Dose: 10 mg Carvedilol (Coreg -) 12.5 mg PO BID [facility] Last Admin: 08/07/17 10:08 Dose: 12.5 mg Glipizide (Glucotrol -) 10 mg PO BIDAC [facility] Last Admin: 08/07/17 17:40 Dose: 10 mg Hydrochlorothiazide (Hctz -) 12.5 mg PO DAILY [facility] Last Admin: 08/07/17 10:04 Dose: 12.5 mg Losartan Potassium (Cozaar -) 100 mg PO DAILY [facility] Last Admin: 08/07/17 10:08 Dose: 100 mg Non-Formulary Medication (Canagliflozin [Invokana]) 100 mg PO DAILY [facility] Pantoprazole Sodium (Protonix -) 40 mg PO DAILY [facility] Last Admin: 08/07/17 10:04 Dose: 40 mg - Objective Vital Signs: Vital Signs Temperature 97.9 F 08/07/17 14:52 Pulse Rate 78 08/07/17 14:52 Respiratory Rate 20 08/07/17 14:52 Blood Pressure 124/76 08/07/17 14:52 O2 Sat by Pulse Oximetry (%) 96 08/07/17 09:00 Constitutional: Yes: No Distress HENT: Yes: Atraumatic Neck: Yes: Supple Cardiovascular: Yes: Regular Rate and Rhythm Respiratory: Yes: CTA Bilaterally Extremities: Yes: WNL Neurological: Yes: Alert, Oriented Labs: CBC, BMP 08/05/17 07:41 08/05/17 07:45 INR, PTT INR 1.02 (0.82-1.09) 08/04/17 09:45 Problem List - Problems (1) Chest pain Assessment/Plan: resolved Code(s): R07.9 - CHEST PAIN, UNSPECIFIED (2) Pulmonary emboli Assessment/Plan: on eliquis now Code(s): I26.99 - OTHER PULMONARY EMBOLISM WITHOUT ACUTE COR PULMONALE (3) Diabetes Assessment/Plan: on meds, bgms stable Code(s): E11.9 - TYPE 2 DIABETES MELLITUS WITHOUT COMPLICATIONS (4) Hypercholesterolemia Assessment/Plan: on meds Code(s): E78.00 - PURE HYPERCHOLESTEROLEMIA, UNSPECIFIED (5) Hypertension Assessment/Plan: on meds Code(s): I10 - ESSENTIAL (PRIMARY) HYPERTENSION Assessment/Plan dc in am prescription given by dr bello
[2017-08-07] MEDS: APIXABAN 5 MG TABLET PO SCH (21:11)
[2017-08-07] MEDS: ATORVASTATIN CA 10 MG TABLET (FP) PO SCH (21:11)
[2017-08-08] MEDS: glipiZIDE 10 MG TABLET (FP) PO SCH (06:37)
--- NOTE | 2017-08-08 08:14 | PN ---
Progress Note (short form) - Note Progress Note: Chief Complaint: Events noted, notes reviewed, continues to report persistence of dyspnea but improved, denies any chest discomfort History of Present Illness: Seen and examined on telemetry. Events noted, notes reviewed, continues to report persistence of dyspnea but improved, denies any chest discomfort Echocardiography report noted Medications: Current Medications Acetaminophen (Tylenol -) 650 mg PO Q6H PRN PRN Reason: FEVER Last Admin: 08/07/17 13:35 Dose: 650 mg Apixaban (Eliquis -) 10 mg PO BID [facility] Last Admin: 08/07/17 21:11 Dose: 10 mg Atorvastatin Calcium (Lipitor -) 10 mg PO HS [facility] Last Admin: 08/07/17 21:11 Dose: 10 mg Carvedilol (Coreg -) 12.5 mg PO BID [facility] Last Admin: 08/07/17 21:11 Dose: 12.5 mg Glipizide (Glucotrol -) 10 mg PO BIDAC [facility] Last Admin: 08/08/17 06:37 Dose: 10 mg Hydrochlorothiazide (Hctz -) 12.5 mg PO DAILY [facility] Last Admin: 08/07/17 10:04 Dose: 12.5 mg Losartan Potassium (Cozaar -) 100 mg PO DAILY [facility] Last Admin: 08/07/17 10:08 Dose: 100 mg Non-Formulary Medication (Canagliflozin [Invokana]) 100 mg PO DAILY [facility] Pantoprazole Sodium (Protonix -) 40 mg PO DAILY [facility] Last Admin: 08/07/17 10:04 Dose: 40 mg Review of Systems - Review of Systems Constitutional: denies: Chills, Fever Cardiovascular: as noted above Respiratory: reports: dyspnea denies: Cough or sputum production Gastrointestinal: denies: Abdominal Pain, Constipation, Diarrhea, Nausea or Vomiting Neurological: denies: Dizziness or Headache Vital Signs: Last Vital Signs Temp Pulse Resp BP Pulse Ox 97.6 F 73 20 129/76 96 08/08/17 06:00 08/08/17 06:00 08/08/17 06:00 08/08/17 06:00 08/07/17 21:00 Intake & Output 08/05/17 08/06/17 08/07/17 08/08/17 23:59 23:59 23:59 23:59 Intake Total 622 1415 1646 260 Balance 622 1415 1646 260 Weight 260 lb HENT: Atraumatic Neck: Supple negative JVD Respiratory: Diminished breath sounds at the bases Cardiovascular: S1 S2 Regular Rate and Rhythm Gastrointestinal: Soft, Benign Normal Bowel Sounds Ext: No Edema Labs: CBC, BMP 08/05/17 07:41 08/05/17 07:45 INR, PTT INR 1.02 (0.82-1.09) 08/04/17 09:45 Assessment/Plan ASSESSMENT: 1. Pulmonary thrombo-embolism (Unprovoked) 2. RV hypokinesia related to above 3. HTN 4. Diabetes mellitus 5. Hypercholesterolemia 6. Exogenous obesity PLAN: 1. Continue DOAC therapy with Eliquis 10 mg twice daily for 1 week and then 5 mg twice daily, duration of therapy to be decided 6 months versus lifelong since it was an unprovoked event, further evaluation of hyper-coagulable state as outpatient 2. Continue Carvedilol 3. Continue Losartan 4. Plan to D/C home and advised F/U in the office Gerardo Mckenna MD
[2017-08-08] MEDS: CARVEDILOL 12.5 MG TABLET (FP) PO SCH (09:05)
[2017-08-08] MEDS: HYDROCHLOROTHIAZIDE 12.5 MG CAPSULE (FP) PO SCH (09:05)
[2017-08-08] MEDS: LOSARTAN POTASSIUM 50 MG TABLET (FP) PO SCH (09:05)
[2017-08-08] MEDS: APIXABAN 5 MG TABLET PO SCH (09:06)
[2017-08-08] MEDS: PANTOPRAZOLE 40 MG TABLET (FP) PO SCH (09:37)
[2017-08-08 10:43] VITALS: BP 133/78; PULSE 78; TEMP 98
--- NOTE | 2017-08-14 18:58 | DS ---
Physical Examination Vital Signs: Vital Signs Temperature 98 F 08/08/17 09:00 Pulse Rate 78 08/08/17 09:00 Respiratory Rate 18 08/08/17 09:00 Blood Pressure 133/78 08/08/17 09:00 O2 Sat by Pulse Oximetry (%) 96 08/08/17 09:00 Labs: CBC, BMP 08/05/17 07:41 08/05/17 07:45 Discharge Summary Reason For Visit: PULMONARY EMBOLISM - Instructions Diet, Activity, Other Instructions: PT HAS BEEN IN THE HOSPITAL FROM 08/04-08/08 NEED TO SEE PMD / HEMATOLOGY BEFORE GOING BACK TO WORK TO GET CLEARANCE Referrals: Alan Engel v [Primary Care Provider] - Disposition: HOME - Home Medications Comprehensive Discharge Medication List: Ambulatory Orders Carvedilol [Coreg] 12.5 mg PO BID 03/20/15 Glipizide 10 mg PO BID 03/20/15 Simvastatin [Zocor -] 20 mg PO HS 03/20/15 Canagliflozin [Invokana] 100 mg PO DAILY 06/10/16 Ibuprofen [Motrin -] 600 mg PO QID PRN #28 tablet 06/16/16 Losartan/Hydrochlorothiazide [Losartan-Hctz 100-12.5 mg Tab] 1 each PO DAILY Omeprazole 40 mg PO DAILY 08/04/17 Apixaban [Eliquis -] 10 mg PO BID #14 tablet 08/07/17 Miscellaneous Medical Supply [Outpatient Order] 1 each ASDIR #1 misc dc home on 08/08/17
== END 2017-08-08 10:28 | disposition home or self-care (01) | DRG 176 ==
LOC: JER 08:02 → JERBED 14:59 → J4W 08-05 14:15
PROVIDERS: ADMIT Internal Medicine; ATTEND Internal Medicine
DX: I26.99 Other pulmonary embolism without acute cor pulmonale (principal); Z68.42 Body mass index [BMI] 45.0-49.9, adult; E11.9 Type 2 diabetes mellitus without complications; Z79.84 Long term (current) use of oral hypoglycemic drugs; I10 Essential (primary) hypertension; E78.5 Hyperlipidemia, unspecified; K44.9 Diaphragmatic hernia without obstruction or gangrene; E04.1 Nontoxic single thyroid nodule; K76.9 Liver disease, unspecified; E66.01 Morbid (severe) obesity due to excess calories
CPT/HCPCS: 36415; 71045-TC-FY; 71275-TC; 80053; 81003; 82550; 82553; 82962; 84484; 85025; 85379; 85610; 85730; 93005; 93010; 93306-TC; 93971-TC; 99285-25; J1644

== ENCOUNTER 2017-08-28 11:49 | Observation (INO) | payer BC ==
[2017-08-28 11:56] VITALS: BMI 46.7
--- NOTE | 2017-08-28 12:34 | PDOC ---
History of Present Illness - General Chief Complaint: Shortness of Breath Stated Complaint: sob Time Seen by Provider: 08/28/17 12:00 History Source: Patient Exam Limitations: No Limitations - History of Present Illness Initial Comments: This is a 47 YOF with h/o recently diagnosed left anteromerial basal LLL PE ( admitted to [facility] 08/04/17 and discharged 08/08/17 on apixaban which she has been taking adherently), HTN (on carvedilol and Losartan/HCTZ), HLD (on simvastatin) , NIDDM (on Glipizide and canagliflozin), GERD (on omeprazole) who p/w SOB and twinges of chest pain which have been ongoing since her discharge from recent admission). She was seen in follow up this morning in Dr. Erazo office, and Dr. Woodruff was concerned about her chest pain and SOB. The patient notes that the chest pain minimal and nonradiating, comes in sharp twinges twice a day lasting <1 minute at a time, and is in the very middle of her chest. She has a separate dull left upper chest pain when she breathes deeply. She additionally notes unchanged continued SOB, persistent RLE swelling and cramping pain, and mild heart palpitations yesterday. She denies lightheadedness, dizziness, headache, new vision changes, numbness, tingling, weakness, cough, abdominal pain, or other symptoms. She has never had a known blood clot prior to that which was diagnosed last month, but states that her mother had to be on anticoagulation for blood clots. Past History - Past Medical History Allergies/Adverse Reactions: Allergies Allergy/AdvReac Type Severity Reaction Status Date / Time No Known Allergies Allergy Verified 08/28/17 11:50 Home Medications: Ambulatory Orders Carvedilol [Coreg] 12.5 mg PO BID 03/20/15 Glipizide 10 mg PO BID 03/20/15 Simvastatin [Zocor -] 20 mg PO HS 03/20/15 Canagliflozin [Invokana] 100 mg PO DAILY 06/10/16 Ibuprofen [Motrin -] 600 mg PO QID PRN #28 tablet 06/16/16 Losartan/Hydrochlorothiazide [Losartan-Hctz 100-12.5 mg Tab] 1 each PO DAILY Omeprazole 40 mg PO DAILY 08/04/17 Apixaban [Eliquis -] 10 mg PO BID #14 tablet 08/07/17 Anemia: Yes Asthma: No Cancer: No Cardiac Disorders: No CVA: No COPD: No CHF: No Dementia: No Diabetes: Yes GI Disorders: No Disorders: No HTN: Yes Hypercholesterolemia: Yes Liver Disease: No Seizures: No Thyroid Disease: No Other medical history: PULMONARY EMBOLISM JULY 2017 - Surgical History Abdominal Surgery: No Appendectomy: No Cardiac Surgery: No Cholecystectomy: No Lung Surgery: No Neurologic Surgery: No Orthopedic Surgery: No - Suicide/Smoking/Psychosocial Hx Smoking History: Never smoked Have you smoked in the past 12 months: No Hx Alcohol Use: No Drug/Substance Use Hx: No Substance Use Type: None Hx Substance Use Treatment: No Review of Systems - Review of Systems Able to Perform ROS?: Yes Constitutional: No: Chills, Fever, Unexplained wgt Loss HEENTM: No: Nose Congestion, Throat Pain Respiratory: Yes: Shortness of Breath. No: Cough, Wheezing, Hemoptysis Cardiac (ROS): Yes: Chest Pain, Palpitations ABD/GI: No: Constipated, Diarrhea, Nausea, Vomiting : No: Burning, Dysuria Musculoskeletal: No: Back Pain, Neck Pain Integumentary: No: Bruising, Rash Neurological: No: Headache, Numbness, Tingling, Weakness, Dizziness Endocrine: No: Unexplained Weight Gain, Unexplained Weight Loss *Physical Exam - Vital Signs Last Vital Signs Temp Pulse Resp BP Pulse Ox 97.7 F 82 22 129/77 98 08/28/17 11:50 08/28/17 11:50 08/28/17 11:50 08/28/17 11:50 08/28/17 11:50 - Physical Exam General Appearance: Yes: Nourished, Obese, Other (appears slightly tired but conversive, pleasant, answering questions appropriately). No: Apparent Distress HEENT: positive: EOMI, Normal Voice, Hearing Grossly Normal. negative: Scleral Icterus (R), Scleral Icterus (L), Nasal Congestion Neck: positive: Trachea midline, Supple. negative: Tender, Rigid Respiratory/Chest: positive: Lungs Clear, Normal Breath Sounds. negative: Respiratory Distress, Labored Respiration, Rapid RR, Crackles, Rhonchi, Stridor , Wheezing Cardiovascular: positive: Regular Rhythm, Regular Rate, S1, S2, Edema (RLE). negative: JVD, Murmur Gastrointestinal/Abdominal: positive: Normal Bowel Sounds, Soft. negative: Tender, Organomegaly, Pulsatile Mass, Guarding Musculoskeletal: positive: Normal Inspection. negative: Decreased Range of Motion, Vertebral Tenderness Extremity: positive: Normal Capillary Refill, Normal Inspection, Normal Range of Motion, Other (RLE 2+ pitting edema but no calf tenderness). negative: Tender, Cyanosis Integumentary: positive: Normal Color, Dry, Warm. 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 negative: Facial Droop, Numbness, Sensory Deficit, Confused, Disoriented Heart Score/ECG Review - History History: Slightly suspicious - Electrocardiogram EKG: Normal - Age Age: 45-65 - Risk Factors Risk Factors Heart Score: Yes Hx Hypercholesterolemia, Yes Hx Hypertension, Yes Hx Diabetes, No Smoking History, Yes Hx Obesity Based on the list above the patient has:: >/=3 risk factors or Hx atherosclerotic disease - Troponin Troponin: </= normal limit - Score Heart Score - Total: 3 #1 SR rate 78 with incomplete RBBB, normal axis and intervals, no ischemic changes though T-wave flattening in III and aVL similar to prior EKG 08/04/17 ED Treatment Course - LABORATORY CBC & Chemistry Diagram: 08/28/17 12:45 08/28/17 12:48 - RADIOLOGY Radiology Studies Ordered: Category Date Time Status CHEST PA & LAT [RAD] Stat Radiology 08/28/17 12:25 Ordered Medical Decision Making - Medical Decision Making Patient with h/o known PE p/w continued SOB and chest pain despite adherence to anticoagulation regimen. Initial Vital Signs Temp Pulse Resp BP Pulse Ox 97.7 F 82 22 129/77 98 08/28/17 11:50 08/28/17 11:50 08/28/17 11:50 08/28/17 11:50 08/28/17 11:50 Exam: Alert, oriented, no distress, normal heart and lung and abdominal exams, normal neuro exam, RLE 2+ pitting edema without ttp. DDX IBNLT: Normal course of PE, additional theomboembolism complicating initial PE, CHF, pulmonary edema, PNA/bronchitis, ACS, pulmonary HTN, other lung disease , anemia, pericarditis, tamponade, AD, PTX, allergic reaction, malignancy (e.g. causing pericardial effusion or vascular shunt), other infection, etc. W/U ordered: CBCD CMP Mg Phos Troponin CK CKMB BNP Venous Blood Gas UA UCx EKG CXR TX ordered: Pt positioned with head of bed up, IVF, monitor Spoke with Dr. Woodruff who is concerned apixaban may not be working well enough for the patient. She may need to be switched to another anticoagulant. Patient found to be initially hypotensive here in the ED and STAT portable echo is ordered. I spoke with Cardiology to let them known of the need for portable echo. EKG: SR rate 78 with incomplete RBBB, normal axis and intervals, no ischemic changes though T-wave flattening in III and aVL similar to prior EKG 08/04/17 CXR: NADP Laboratory Tests 08/28/17 08/28/17 08/28/17 12:44 12:45 12:48 WBC 8.7 RBC 4.61 Hgb 14.0 Hct 41.9 MCV 90.9 MCH 30.3 MCHC 33.3 RDW 14.2 Plt Count 216 MPV 9.6 Absolute Neuts (auto) 5.0 Neutrophils % 58.0 Lymphocytes % 31.4 Monocytes % 6.2 Eosinophils % 3.1 D Basophils % 1.3 Nucleated RBC % 0 PT with INR 13.50 H INR 1.19 H PTT (Actin FS) 34.2 D VBG pH 7.37 POC VBG pCO2 49.3 POC VBG pO2 34.2 Mixed VBG HCO3 27.9 H Sodium Potassium Chloride Carbon Dioxide Anion Gap BUN Creatinine Creat Clearance w eGFR Random Glucose Calcium Magnesium Total Bilirubin AST ALT Alkaline Phosphatase Creatine Kinase Creatine Kinase Index CK-MB (CK-2) Troponin I B-Natriuretic Peptide Total Protein Albumin 08/28/17 12:48 WBC RBC Hgb Hct MCV MCH MCHC RDW Plt Count MPV Absolute Neuts (auto) Neutrophils % Lymphocytes % Monocytes % Eosinophils % Basophils % Nucleated RBC % PT with INR INR PTT (Actin FS) VBG pH POC VBG pCO2 POC VBG pO2 Mixed VBG HCO3 Sodium 138 Potassium 4.1 Chloride 102 Carbon Dioxide 28 Anion Gap 8 BUN 14 Creatinine 1.0 Creat Clearance w eGFR 59.18 Random Glucose 145 H Calcium 9.1 Magnesium 1.9 Total Bilirubin 0.4 AST 14 L ALT 21 Alkaline Phosphatase 142 H Creatine Kinase 215 H Creatine Kinase Index 0.4 CK-MB (CK-2) 0.89 Troponin I < 0.02 B-Natriuretic Peptide 45.61 Total Protein 7.5 Albumin 3.1 L Patient has continued hypotension on blood pressure measurements; chest CTA is ordered. Echo has been completed and awaiting results. Vital Signs Temperature 97.8 F 08/28/17 16:16 Pulse Rate 79 08/28/17 16:16 Respiratory Rate 18 08/28/17 16:16 Blood Pressure 103/65 08/28/17 16:16 O2 Sat by Pulse Oximetry (%) 100 08/28/17 16:16 Reassessment: Patient continues to be in no acute distress. The Pt is unsafe for discharge at this time. They require further hospital observation, workup, and treatment. Microblog sent to [facility] for admission. Spoke with [facility], in agreement Pt to be admitted to [facility]. Decision to Admit order placed to covering attending Dr. Baker. *DC/Admit/Observation/Transfer Diagnosis at time of Disposition: Pulmonary embolism Qualifiers: Pulmonary embolism type: other Chronicity: unspecified Acute cor pulmonale presence: without acute cor pulmonale Qualified Code(s): I26.99 - Other pulmonary embolism without acute cor pulmonale Hypotension Qualifiers: Hypotension type: unspecified hypotension type Qualified Code(s): I95.9 - Hypotension, unspecified - Discharge Dispostion Condition at time of disposition: Guarded Decision to Admit order: Yes - Referrals Referrals: Alan Engel v [Primary Care Provider] - - Patient Instructions - Post Discharge Activity
[2017-08-28 12:56] LABS: BASO % 1.3 % (0-2.0); EOS % 3.1 % (0-4.5); HEMATOCRIT 41.9 % (32.4-45.2); LYMPH % 31.4 % (8-40); MCH 30.3 pg (25.7-33.7); MCHC 33.3 g/dl (32.0-36.0); MEAN CELL VOLUME 90.9 fl (80-96); MEAN PLT VOLUME 9.6 fl (7.5-11.1); MONO % 6.2 % (3.8-10.2); PLATELET COUNT 216 K/MM3 (134-434); RBC 4.61 M/mm3 (3.60-5.2); RDW 14.2 % (11.6-15.6); WHITE BLOOD COUNT 8.7 K/mm3 (4.0-10.0)
[2017-08-28 12:58] LABS: VENOUS PC02 49.3 mmHg (38-52); VENOUS PH 7.37 (7.32-7.42); VENOUS PO2 34.2 mmHg (28-48)
[2017-08-28] MEDS ORDERED: SODIUM CHLORIDE 0.9% 1000 ML INFUS.BAG IV ONE (12:58)
--- NOTE | 2017-08-28 12:58 | PDOC ---
Attending Attestation - Resident Resident Name: Diana Haq - ED Attending Attestation I have performed the following: I have examined & evaluated the patient, The case was reviewed & discussed with the resident, I agree w/resident's findings & plan, Exceptions are as noted - Medical Decision Making Hypotension status post recent PE on anticoagulation 2 L IV fluids ordered stat echo ordered, stat CTA ordered Results demonstrate no gross right heart strain, no significant interval change in PE progression Non ischemic EKG, first troponin Negative Given hypotension and chest pain we'll admit to telemetry for serial troponins and further management. <AníbalAgapito paloom - Last Filed: 08/28/17 18:15> - HPI HPI: 08/28/17 12:59 The patient is a 47 year old female, with a significant PMH of recently diagnosed PE (admitted to [facility] 08/04/17 and discharged 08/08/17, on apixaban as prescribed), hypertension, hyperlipidemia, NIDDM, GERD, who presents to the emergency department with shortness of breath and intermittent chest pain for approx. 3 weeks. The patient states she went for a follow up visit with Dr. Woodruff (Service Architect) this morning and reports the doctor was concerned about the reported chest pain/ shortness of breath so she advised the patient to come to the ED. The patient describes the intermittent chest pain as minimal, non radiating, mid sternal and last for less than a minute at a time before resolving on its own. The patient also notes an upper left sided dull chest pressure when she takes a deep breath. As per the patients shortness of breath , she states she has been persistently short of breath since discharge. The patient also endorses persistent right lower extremity swelling and an episode of palpitations yesterday. The patient denies lightheadedness, dizziness, syncope, numbness, tingling, weakness, and hemoptysis. Denies fever, chills, abdominal pain, nausea, vomit, diarrhea and constipation. Denies dysuria, frequency, urgency and hematuria. Allergies: NKA - Physicial Exam PE: 08/28/17 13:57 Vitals: Triage vital signs reviewed General Appearance: No acute distress, well nourished, well developed Head: Atraumatic Eyes: Pupils equal reactive round, extraocular movement intact Neck: Supple; No nuchal rigidity Chest Wall: Nontender Cardiac: +Atrial fibrillation. No murmurs, no rubs, no gallops Lungs: Clear to auscultation bilateral, good air movement bilaterally Abdomen: Soft, nondistended, normal bowel sounds, nontender to palpation Rectal: Exam deferred Extremities: Full range of motion to all extremities, no cyanosis, clubbing. Skin: Warm and dry, no rashes or lesions, no rash, no petechiae Neuro: AOX3; Cranial Nerves 2-12 grossly intact, Strength intact to all extremities, Sensation intact to all extremities. Psych: Normal mood, normal affect - Medical Decision Making 08/28/17 13:00 47 year old female, with PMH of recently diagnosed PE (admitted to [facility] 08/04/17 and discharged 08/08/17, on apixaban as prescribed), hypertension, hyperlipidemia , NIDDM, GERD, presents to the ED with intermittent chest pain and shortness of breath. Plan: EKG, Labs, VBG, Chest x-ray, Meds, Ultrasound, Echo. <Esteban Escalante - Last Filed: 08/28/17 18:31> Heart Score/ECG Review - ECG Impressions Comment:: 08/28/17 18:18 EKG performed at 12:00. Demonstrates sinus rhythm no ST elevations no T-wave inversions. Incomplete right bundle-branch block Interpreted by me. <Agapito Spangler - Last Filed: 08/28/17 18:15> Attestations - Attestations 08/28/17 13:01 Documentation prepared by Esteban Escalante, acting as medical donation professional for Agapito Spangler MD. <Esteban Escalante - Last Filed: 08/28/17 18:31>
[2017-08-28 13:42] LABS: CHLORIDE 102 mmol/L (98-107); POTASSIUM 4.1 mmol/L (3.5-5.1); SODIUM 138 mmol/L (136-145)
[2017-08-28 13:43] LABS: INR 1.19 (0.82-1.09); PROTHROMBIN TIME (PATIENT) 13.5 SEC (9.7-13.0)
[2017-08-28 13:45] LABS: ACTIVATED PTT 34.2 SECONDS (26.9-34.4)
[2017-08-28 13:55] LABS: ALBUMIN 3.1 g/dl (3.4-5.0); ALK PHOS 142 U/L (45-117); ANION GAP 8 (8-16); BILIRUBIN,TOTAL 0.4 mg/dL (0.2-1.0); BLOOD UREA NITROGEN 14 mg/dL (7-18); CALCIUM 9.1 mg/dL (8.5-10.1); CO2 28 mmol/L (21-32); GLUCOSE,RANDOM 145 mg/dL (74-106); MAGNESIUM 1.9 mg/dL (1.8-2.4); N-TERMINAL BNP 45.61 pg/ml (5-125); SGOT/AST 14 U/L (15-37); SGPT/ALT 21 U/L (12-78); TOT PROT 7.5 g/dl (6.4-8.2)
--- NOTE | 2017-08-28 15:35 | EKG ---
Test Reason : Blood Pressure : / mmHG Vent. Rate : 078 BPM Atrial Rate : 078 BPM P-R Int : 170 ms QRS Dur : 094 ms QT Int : 382 ms P-R-T Axes : 045 -15 018 degrees QTc Int : 435 ms NORMAL SINUS RHYTHM INCOMPLETE RIGHT BUNDLE BRANCH BLOCK BORDERLINE ECG WHEN COMPARED WITH ECG OF 04-AUG-2017 15:18, NONSPECIFIC T WAVE ABNORMALITY, IMPROVED IN LATERAL LEADS QT HAS SHORTENED Confirmed by BUBBA DE LEÓN, SARAH ([id number]) on 08/28/2017 3:35:01 PM Referred By: Confirmed By:SARAH MAC MD
--- NOTE | 2017-08-28 16:57 | HP ---
CHIEF COMPLAINT: " SOB and mild chest pain" PCP: Dr. Alan Engel Assistant Refinery Operator: Dr. Woodruff HISTORY OF PRESENT ILLNESS: Patient is a 47 year old female was sent by Dr. Woodruff from her office for the evaluation of persistent SOB and mild chest pain. Patient was diagnosed to have unprovoked Pulmonary embolism on 08/04/17, was discharged home on 08/14/2017. After she was discharged, patient mentions she continued to have discomfort in her chest and had SOB which resolved after a couple of days. But since few days , she has been having SOB even at rest and while cooking, going to the bathroom. Has had 3 episodes of chest pain, located centrally, pin prick type, non radiating, lasting for few seconds. Denies palpitation, cough, abdominal pain, nausea or vomiting. Hasn't been working since last admission, sits at home and doesn't walk much. Bowel/Bladder habit normal. Sleep normal. Appetite decreased since few days, feels thirst most of the time. Reports that she is compliant with her meds. No Hx of cancers. Colonoscopy was done few yrs ago (prior to gastric by pass sx- hasn't had sx yet), was found to have 2 polyps and removed. Had mammogram done in May,, which was normal and pap smear was normal. Gives a h/o OCP use for about 2 yrs, hasn't taken for many yrs now. Patient reports that in July before she was admitted, had swelling of the right lower ext for which she had a doppler done at [facility] and was negative for DVT. Then after 2 weeks, had SOB, chest pain and was found to have PE. 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 PAST MEDICAL HISTORY: Hypertension, HLD, DM, Unprovoked PE PAST SURGICAL HISTORY: Hysterectomy for fibroids, 3 C-sec Social History: Smoking: Never smoked Alcohol: Occasional, last drink was yesterday- 1 glass of wine. Drugs: Denies Family History: Non contributory Allergies No Known Allergies Allergy (Verified 08/28/17 11:50) HOME MEDICATIONS: Home Medications Medication Instructions Recorded Carvedilol [Coreg] 12.5 mg PO BID 03/20/15 Glipizide 10 mg PO BID 03/20/15 Simvastatin [Zocor -] 20 mg PO HS 03/20/15 Canagliflozin [Invokana] 100 mg PO DAILY 06/10/16 Ibuprofen [Motrin -] 600 mg PO QID PRN #28 tablet 06/16/16 Losartan/Hydrochlorothiazide 1 each PO DAILY 08/04/17 [Losartan-Hctz 100-12.5 mg Tab] Omeprazole 40 mg PO DAILY 08/04/17 Apixaban [Eliquis -] 10 mg PO BID #14 tablet 08/07/17 REVIEW OF SYSTEMS CONSTITUTIONAL: Absent: fever, chills, diaphoresis, generalized weakness, malaise, loss of appetite, weight change HEENT: Absent: rhinorrhea, nasal congestion, throat pain, throat swelling, difficulty swallowing, mouth swelling, ear pain, eye pain, visual changes CARDIOVASCULAR: Present: Chest pain, sob Absent: chest pain, syncope, palpitations, irregular heart rate, lightheadedness , peripheral edema RESPIRATORY: Absent: cough, shortness of breath, dyspnea with exertion, orthopnea, wheezing, stridor, hemoptysis GASTROINTESTINAL: Absent: abdominal pain, abdominal distension, nausea, vomiting, diarrhea, constipation, melena, hematochezia GENITOURINARY: Absent: dysuria, frequency, urgency, hesitancy, hematuria, flank pain, genital pain MUSCULOSKELETAL: Absent: myalgia, arthralgia, joint swelling, back pain, neck pain SKIN: Absent: rash, itching, pallor HEMATOLOGIC/IMMUNOLOGIC: Absent: easy bleeding, easy bruising, lymphadenopathy, frequent infections ENDOCRINE: Absent: unexplained weight gain, unexplained weight loss, heat intolerance, cold intolerance NEUROLOGIC: Absent: headache, focal weakness or paresthesias, dizziness, unsteady gait, seizure, mental status changes, bladder or bowel incontinence PSYCHIATRIC: Absent: anxiety, depression, suicidal or homicidal ideation, hallucinations. PHYSICAL EXAMINATION Vital Signs - 24 hr 08/28/17 08/28/17 08/28/17 11:50 12:42 12:45 Temperature 97.7 F Pulse Rate 82 Pulse Rate [ 79 Left Radial] Pulse Rate [ 75 Right Radial] Respiratory 22 22 21 Rate Blood Pressure 129/77 Blood Pressure 96/66 [Left Arm] Blood Pressure 86/57 [Right Arm] O2 Sat by Pulse 98 100 100 Oximetry (%) 08/28/17 08/28/17 08/28/17 12:52 14:14 16:16 Temperature 97.8 F Pulse Rate Pulse Rate [ 76 84 79 Left Radial] Pulse Rate [ Right Radial] Respiratory 23 19 18 Rate Blood Pressure Blood Pressure [Left Arm] Blood Pressure 97/63 97/74 103/65 [Right Arm] O2 Sat by Pulse 100 100 100 Oximetry (%) GENERAL: Morbidly obese, Young female, sitting comfortably in bed, Awake, alert , and fully oriented, in no acute distress. HEAD: Normal with no signs of trauma. EYES: Pupils equal, round and reactive to light, extraocular movements intact, sclera anicteric, conjunctiva clear. No lid lag. EARS, NOSE, THROAT: Ears normal. Moist mucous membranes. NECK: Supple. LUNGS: Breath sounds equal, clear to auscultation bilaterally. No wheezes, and no crackles. No accessory muscle use. HEART: Regular rate and rhythm, normal S1 and S2 without murmur. ABDOMEN: Soft, nontender, not distended, normoactive bowel sounds, no guarding, no rebound, no masses. No hepatomegaly or splenomegaly. MUSCULOSKELETAL: Normal range of motion at all joints. No bony deformities or tenderness. No CVA tenderness. UPPER EXTREMITIES: 2+ pulses, warm, well-perfused. No cyanosis. No clubbing. No peripheral edema. LOWER EXTREMITIES: 2+ pulses, warm, well-perfused. No calf tenderness. Righ lower ext swellling. NEUROLOGICAL: No facial droop, power 5/5 in all ext. Cranial nerves II-XII intact. Normal speech. Gait not observed. PSYCHIATRIC: Cooperative. Good eye contact. Appropriate mood and affect. SKIN: Warm, dry, normal turgor, no rashes or lesions noted, normal capillary refill. Laboratory Results - last 24 hr 08/28/17 08/28/17 08/28/17 12:44 12:45 12:48 WBC 8.7 RBC 4.61 Hgb 14.0 Hct 41.9 MCV 90.9 MCH 30.3 MCHC 33.3 RDW 14.2 Plt Count 216 MPV 9.6 Absolute Neuts (auto) 5.0 Neutrophils % 58.0 Lymphocytes % 31.4 Monocytes % 6.2 Eosinophils % 3.1 D Basophils % 1.3 Nucleated RBC % 0 PT with INR 13.50 H INR 1.19 H PTT (Actin FS) 34.2 D VBG pH 7.37 POC VBG pCO2 49.3 POC VBG pO2 34.2 Mixed VBG HCO3 27.9 H Sodium Potassium Chloride Carbon Dioxide Anion Gap BUN Creatinine Creat Clearance w eGFR Random Glucose Calcium Magnesium Total Bilirubin AST ALT Alkaline Phosphatase Creatine Kinase Creatine Kinase Index CK-MB (CK-2) Troponin I B-Natriuretic Peptide Total Protein Albumin 08/28/17 12:48 WBC RBC Hgb Hct MCV MCH MCHC RDW Plt Count MPV Absolute Neuts (auto) Neutrophils % Lymphocytes % Monocytes % Eosinophils % Basophils % Nucleated RBC % PT with INR INR PTT (Actin FS) VBG pH POC VBG pCO2 POC VBG pO2 Mixed VBG HCO3 Sodium 138 Potassium 4.1 Chloride 102 Carbon Dioxide 28 Anion Gap 8 BUN 14 Creatinine 1.0 Creat Clearance w eGFR 59.18 Random Glucose 145 H Calcium 9.1 Magnesium 1.9 Total Bilirubin 0.4 AST 14 L ALT 21 Alkaline Phosphatase 142 H Creatine Kinase 215 H Creatine Kinase Index 0.4 CK-MB (CK-2) 0.89 Troponin I < 0.02 B-Natriuretic Peptide 45.61 Total Protein 7.5 Albumin 3.1 L CTA 08/28/2017: Remains non opacification of branch of left lower lobe pul artery and a small web within the left lobe pul artery ECHO: Left ventricular systolic function normal. ASSESSMENT/PLAN: Patient is a 47 year old female with significant past medical history of Hypertension, HLD, DM, Unprovoked PE was sent by Dr. Woodruff from her office for evaluation of persistent SOB and mild chest pain. # Unprovoked PE CTA done today is unchanged from CT of the chest done on 08/04/2017 Admit in Tele/obs Continuous cardiac monitoring Continue Eliquis 5mg PO BID Dr. CARTER consult requested # SOB and chest pain Likely due to deconditioning Unlikely ACS- related symptoms Chest pain could be due to gastritis, continue omeprazole # Hypertension-Now hypotensive Most likely due to high doses of antihypertensive medication and poor appetite Will hold her home meds: Carvedilol 12.5 mg Po BID and Losartan/HCTZ 100/ 12.5mg and give her IV fluids. # Diabetes Mellitus Will hold her home meds: Invokana and Glipizie Continue ISS, finger sticks Watch for hypoglycemic episodes Diabetic diet # Hyperlipidemia Continue Simvastatin 20mg # FEN IV NS @ 100 mls/hr, looks dehydrated and hypotensive Electrolytes WNL Sodium controlled/Diabetic diet # Prophylaxis For DVT: already on Eliquis For GI: Not indicated # Code Status: Full Code # Dispo: Admitted in Tele, duration of stay likely 1-2 days. Illness, Investigation and Plan of care explained to the patient. She verbalized understanding. Case discussed with Dr. Baker. Visit type - Emergency Visit Emergency Visit: Yes ED Registration Date: 08/28/17 Care time: The patient presented to the Emergency Department on the above date and was hospitalized for further evaluation of their emergent condition. - New Patient This patient is new to me today: Yes Date on this admission: 08/28/17 - Critical Care Critical Care patient: No Hospitalist Screening - Colonoscopy Questionnaire Colonoscopy Questionnaire: Colonoscopy Questionnaire - Patient: 50 - 75 years old and never had a screening colonoscopy: No History of colon or rectal polyps, or CA: Yes History of IBD, Crohn's disease or UC: Unknown History of abdominal radiation therapy as a child: Unknown - Relative: 1 with colon or rectal CA, or polyps at age 60 or younger: Unknown Colon or rectal CA diagnosed at age 45 or younger: Unknown Multiple relatives with colon or rectal CA: Unknown - Outcome: Screening Result: Positive Screen
[2017-08-28] MEDS ORDERED: SODIUM CHLORIDE 1,000 ML IV SCH (19:00)
--- NOTE | 2017-08-28 19:12 | PN ---
Teaching Attending Note Name of Resident: Maira Billings ATTENDING PHYSICIAN STATEMENT I saw and evaluated the patient. I reviewed the resident's note and discussed the case with the resident. I agree with the resident's findings and plan as documented. SUBJECTIVE: CC: CP and SOB HPI: 47 y/o lady with h/o HTN, HLP, DM, GERd and recent admisison for L subsegemental PE form 08/04-08/14 who presented with CP and SOb and was found ot have hypotension in ER After her dc on 08/14 she felt SOb and chest discomfort for few days then it resolved. She has not been ambulatory since , spends most of her time in bed or in chair. In past 2 days she developed SOB with minimal activities and sometimes at rest. Cp was sharp,over an area of 1 cm and lasted 1-2 seconds . it happened twice today and once yesterday. She saw Dr. Woodruff today who sent her to ER .she denies fever or chills , or light headedness. has no cough. reports poor po intake and being thirsty . no worsening in LE edema . no abd pain or or dysuria In ER, SBP was in 80s , received IVf with improvement in her BP OBJECTIVE: NAD. AAox3 .no facial droop, MMM. no JVD CV: RRR, no MRG Lungs: CTAB Abd: obese, soft, NT, ND , NL BS Ext: non pitting edema on ankles . DP 2+ b/l . Neuro: EOMi, round equal pupils , reactive to light , no facial droop, tongue and uvula at mid line . strength 5/5 in upper and lower extremities proximally and distally. reflexes 1+ knee jerk and biceps b/l . ASSESSMENT AND PLAN: 47 y/o lady with h/o HTN, HLP, DM, GERd and recent admisison for L subsegemental PE form 08/04-08/14 who presented with CP and SOb and was found ot have hypotension in ER . 1- Hypotension: possibly due to hypovolemia given poor po intake , but also on HTN meds ( ? decreased need of same doses ) . there is no signs of infection / sepsis. CTA did not show increase in size of PE , and echo actually showed normalization in RV function . US with no DVT still . EKG with no acute ischemic changes and d QTc of 435. no suspicion for ACS. trop Nl.and chest pain is atypical - hold HTN MEds . . she might need to be dc on lower dosages - IVF. - monitor labs , and vitals , and for any signs of infection 2- worsening SOB: could be due toher deconditioning as minimally ambulatory after her PE . no increase in size. No signs of heart failure. no inflitrates to indicate PNA and no leukocytosis or fever -monitor . No hypoxia - cont Eliquis for PE . hypercoagulability and cancer screening as out pt 3- Dm : hold invokana , and glipizide. SSI 4- HLP : cont satin 5- Liver nodule on CT last admisison : f/u as out pt 6- Thyrpid nodule found last admission: f/u as out pt DVT Px : on AC
[2017-08-28] MEDS ORDERED: INSULIN SLIDING SCALE (NOVOLOG) 1 VIAL SQ SCH (22:00)
[2017-08-28] MEDS ORDERED: ATORVASTATIN CA 10 MG TABLET (FP) PO SCH (22:00)
[2017-08-28] MEDS: APIXABAN 5 MG TABLET PO SCH (22:29)
[2017-08-29] MEDS: INSULIN SLIDING SCALE (NOVOLOG) 1 VIAL SQ SCH ×3 (06:09→16:47)
[2017-08-29 07:06] LABS: HEMATOCRIT 37.3 % (32.4-45.2); HEMOGLOBIN 12.6 GM/dL (10.7-15.3); MCH 30.9 pg (25.7-33.7); MCHC 33.6 g/dl (32.0-36.0); MEAN PLT VOLUME 9.4 fl (7.5-11.1); PLATELET COUNT 167 K/MM3 (134-434); RBC 4.06 M/mm3 (3.60-5.2); RDW 14.4 % (11.6-15.6)
[2017-08-29 07:08] LABS: ANION GAP 8 (8-16); BLOOD UREA NITROGEN 14 mg/dL (7-18); CALCIUM 8.3 mg/dL (8.5-10.1); CHLORIDE 105 mmol/L (98-107); CO2 26 mmol/L (21-32); GLUCOSE,RANDOM 200 mg/dL (74-106); POTASSIUM 4.2 mmol/L (3.5-5.1); SODIUM 139 mmol/L (136-145)
[2017-08-29] MEDS: APIXABAN 5 MG TABLET PO SCH (09:30)
[2017-08-29] MEDS ORDERED: PANTOPRAZOLE 40 MG TABLET (FP) PO SCH (10:00)
--- NOTE | 2017-08-29 10:49 | CON.PULM ---
Consult Consult Specialty:: PULMONARY Referred by:: YONI Reason for Consultation:: H/O PE - History of Present Illness Chief Complaint: HENDERSON ON MINIMAL EXERTION History of Present Illness: 47 morbidly obese AA female with h/o recently diagnosed LLL PE (admitted to [facility] 08/04/17 and discharged 08/08/17 on apixaban, HTN (on carvedilol and Losartan /HCTZ), HLD (on simvastatin), NIDDM (on Glipizide and canagliflozin), GERD (on omeprazole) who p/w SOB and twinges of chest pain which have been ongoing since her discharge from recent admission). She was seen in follow up this morning in Dr. Erazo office, and Dr. Woodruff was concerned about her chest pain and SOB. The patient notes that the chest pain minimal and nonradiating, comes in sharp twinges twice a day lasting <1 minute. - History Source History Provided By: Patient, Medical Record Limitations to Obtaining History: No Limitations - Past Medical History FEL[employer]: No: Alzheimer's Cardio/Vascular: Yes: HTN, Hyperlipdemia. No: AFIB, Pulmonary Hypertension Pulmonary: Yes: Pulmonary Embolus. No: Asthma, COPD, O2 Dependent Gastrointestinal: Yes: GERD, Hiatal Hernia. No: Ascites Hepatobiliary: No: Cirrhosis Renal/: No: Renal Failure ...LMP: 05/27/16 ...: No Heme/Onc: No: Anemia Psych: No: Addictions Endocrine: Yes: Diabetes Mellitus - Alcohol/Substance Use Hx Alcohol Use: Yes (SOCIAL) - Smoking History Smoking history: Never smoked Have you smoked in the past 12 months: No - Social History Place of : [facility] History of Recent Travel: No Home Medications - Allergies Allergies/Adverse Reactions: Allergies Allergy/AdvReac Type Severity Reaction Status Date / Time No Known Allergies Allergy Verified 08/28/17 11:50 - Home Medications Home Medications: Ambulatory Orders Carvedilol [Coreg] 12.5 mg PO BID 03/20/15 Simvastatin [Zocor -] 20 mg PO HS 03/20/15 Canagliflozin [Invokana] 100 mg PO DAILY 06/10/16 Losartan/Hydrochlorothiazide [Losartan-Hctz 100-12.5 mg Tab] 1 each PO DAILY Omeprazole 40 mg PO DAILY 08/04/17 Apixaban [Eliquis] 5 mg PO BID 08/28/17 Glipizide 20 mg PO BID 08/28/17 Family Disease History - Family Disease History Family History: Unremarkable Review of Systems - Review of Systems Constitutional: reports: No Symptoms Eyes: reports: No Symptoms HENT: reports: No Symptoms Neck: reports: No Symptoms Cardiovascular: reports: Chest Pain Respiratory: reports: SOB on Exertion Gastrointestinal: reports: No Symptoms Genitourinary: reports: No Symptoms Breasts: reports: No Symptoms Reported Physical Exam Vital Sings: Vital Signs Temperature 97.8 F 08/29/17 07:52 Pulse Rate 84 08/29/17 07:52 Respiratory Rate 18 08/29/17 07:54 Blood Pressure 104/60 08/29/17 07:52 O2 Sat by Pulse Oximetry (%) 98 08/29/17 07:54 Constitutional: Yes: Calm Eyes: Yes: EOM Intact HENT: Yes: Normocephalic Neck: Yes: Trachea Midline Cardiovascular: Yes: Regular Rate and Rhythm Respiratory: Yes: CTA Bilaterally Gastrointestinal: Yes: Normal Bowel Sounds Edema: No Neurological: Yes: Alert Labs: CBC, BMP 08/29/17 05:30 08/29/17 05:30 SPO2 POST AMB ON R/A 97% REST REVIEWED Imaging - Results Chest X-ray: Report Reviewed, Image Reviewed Cat Scan: Report Reviewed, Image Reviewed EKG: Report Reviewed (ECHO/VASCULAR) Other: Report Reviewed Problem List - Problems (1) Pulmonary emboli Code(s): I26.99 - OTHER PULMONARY EMBOLISM WITHOUT ACUTE COR PULMONALE Qualifiers: Pulmonary embolism type: other Chronicity: unspecified Acute cor pulmonale presence: without acute cor pulmonale Qualified Code(s): I26.99 - Other pulmonary embolism without acute cor pulmonale (2) Chest pain Code(s): R07.9 - CHEST PAIN, UNSPECIFIED (3) Diabetes Code(s): E11.9 - TYPE 2 DIABETES MELLITUS WITHOUT COMPLICATIONS (4) Hypercholesterolemia Code(s): E78.00 - PURE HYPERCHOLESTEROLEMIA, UNSPECIFIED (5) Hypertension Code(s): I10 - ESSENTIAL (PRIMARY) HYPERTENSION Assessment/Plan RECENT PE UNPROVOKED ON NOACS RE-ADMITTED WITH ATYPICAL CP AND HENDERSON CTA NO CHANGE ECHO/EKG/TROPS/VASCULAR DUPLEX LOWER EXT ALL NL /SPO2 POST AMB 97% SUBJECTIVE HENDERSON LIKELY IN PART DUE TO DECONDITIONED STATE AND RECENT PE NO OBJECTION TO CONTINUING TREATMENT AN OUTPATIENT THANK YOU Adriana BURGOS MD
--- NOTE | 2017-08-29 16:01 | PN ---
Teaching Attending Note Name of Resident: Reyes Garcia ATTENDING PHYSICIAN STATEMENT I saw and evaluated the patient. I reviewed the resident's note and discussed the case with the resident. I agree with the resident's findings and plan as documented. SUBJECTIVE: No fever or chills. No abd pain , no PC , no SOB. walked with no complaints OBJECTIVE: NAD. AAox3 .no facial droop, MMM. no JVD CV: RRR, no MRG Lungs: CTAB Abd: obese, soft, NT, ND , NL BS Ext: non pitting edema on ankles . DP 2+ b/l . ASSESSMENT AND PLAN: 47 y/o lady with h/o HTN, HLP, DM, GERd and recent admission for L subsegemental PE form 08/04-08/14 who presented with CP and SOb and was found ot have hypotension in ER . 1- Hypotension: possibly due to hypovolemia given poor po intake ,No signs of sepsis. Bp improved on IVF . no orthostatic hypotension on today's Vitas - dc IVF and monitor - might not send home on any meds , and will need to resume slowly if BP starts to rise 2- worsening SOB: could be due to her deconditioning as minimally ambulatory after her PE . no increase in PE size. No signs of heart failure. no inflitrates to indicate PNA and no leukocytosis or fever -cont home eliquis 3- Dm : resume po meds at dc . 4- HLP : cont satin 5- Liver nodule on CT last admission: f/u as out pt 6- Thyrpid nodule found last admission: f/u as out pt possible dc this afternoon .
[2017-08-29 17:36] VITALS: BP 127/69; PULSE 80; TEMP 97.2
--- NOTE | 2017-08-29 19:02 | DS ---
Physical Exam: SUBJECTIVE: Patient seen and examined OBJECTIVE: Vital Signs Period Temp Pulse Resp BP Sys/Peck Pulse Ox Last 24 Hr 97.2 F-98.2 F 71-94 18-18 103-127/57-74 96-100 PHYSICAL EXAM GENERAL: The patient is awake, alert, and fully oriented, in no acute distress. HEAD: Normal with no signs of trauma. EYES: PERRL, extraocular movements intact, sclera anicteric, conjunctiva clear. ENT: Ears normal, nares patent, oropharynx clear without exudates, moist mucous membranes. NECK: Trachea midline, full range of motion, supple. LUNGS: Breath sounds equal, clear to auscultation bilaterally, no wheezes, no crackles, no accessory muscle use. HEART: Regular rate and rhythm, S1, S2 without murmur, rub or gallop. ABDOMEN: Soft, nontender, nondistended, normoactive bowel sounds, no guarding, no rebound, no hepatosplenomegaly, no masses. EXTREMITIES: 2+ pulses, warm, well-perfused, no edema. NEUROLOGICAL: Cranial nerves II through XII grossly intact. Normal speech, gait not observed. PSYCH: Normal mood, normal affect. SKIN: Warm, dry, normal turgor, no rashes or lesions noted. LABS Laboratory Results - last 24 hr 08/28/17 08/29/17 08/29/17 22:27 05:30 05:30 WBC 7.0 RBC 4.06 Hgb 12.6 Hct 37.3 MCV 92.0 MCH 30.9 MCHC 33.6 RDW 14.4 Plt Count 167 D MPV 9.4 Sodium 139 Potassium 4.2 Chloride 105 Carbon Dioxide 26 Anion Gap 8 BUN 14 Creatinine 1.0 POC Glucometer 152 Random Glucose 200 H Calcium 8.3 L 08/29/17 08/29/17 05:31 11:26 WBC RBC Hgb Hct MCV MCH MCHC RDW Plt Count MPV Sodium Potassium Chloride Carbon Dioxide Anion Gap BUN Creatinine POC Glucometer 202 199 Random Glucose Calcium HOSPITAL COURSE: Date of Admission:08/28/17 Date of Discharge: 08/29/17 Discharge Summary Reason For Visit: PULMONARY EMBOLISM; HYPOTENSION Condition: Improved - Instructions Diet, Activity, Other Instructions: You were seen here for your chest pain. While you were in the hospital we ruled out any emergencies that could have been causing your chest pain. Your clot ( pulmonary embolism) was seen to be stable on your CAT scan. MEDICATIONS: You were found to have low blood pressure while here and we held your blood pressure medications --Please STOP taking them for now and see your doctor early this coming week so they can recheck your pressure Please continue to take your blood thinner medication (Eliquis 5mg TWICE daily) We have given you a Blood pressure cuff kit at your pharmacy. Please take your blood pressure daily, however at various different times. --IF YOU HAVE A READING >140 for the top number or >90 for the bottom number, please take one tablet of Losartan 50mg daily AND call Dr. Engel for his advice --The Losartan has been prescribed to your pharmacy as well. This is DIFFERENT than your other pill with Losartan in it. THE NEW PILL is NOT a combination pill. FOLLOW-UP: Please follow-up with Dr. Woodruff for your blood clot and anticoagulation therapy Please follow-up with Dr. Engel within the next week. When making an appointment let the admin secretary know you were in the hospital. Referrals: Alan Engel v [Primary Care Provider] - Kacy Calvert MD [Staff Physician] - Disposition: HOME - Home Medications Comprehensive Discharge Medication List: Ambulatory Orders Simvastatin [Zocor -] 20 mg PO HS 03/20/15 Canagliflozin [Invokana] 100 mg PO DAILY 06/10/16 Omeprazole 40 mg PO DAILY 08/04/17 Apixaban [Eliquis] 5 mg PO BID 08/28/17 Glipizide 20 mg PO BID 08/28/17 Blood Pressure Test Kit-Wrist [Blood Pressure Kit] 1 each MC DAILY #1 kit Losartan Potassium 50 mg PO DAILY #30 tablet 08/29/17
== END 2017-08-29 18:20 | disposition home or self-care (01) ==
LOC: JER 11:49 → JERBED 15:44 → J4W 20:31
PROVIDERS: ADMIT Internal Medicine; ATTEND Internal Medicine
PROC: 3E0337Z Introduction of Electrolytic and Water Balance Substance into Peripheral Vein, Percutaneous Approach (ICD-10-PCS; principal; 2017-08-28)
PROC: 3E013VG Introduction of Insulin into Subcutaneous Tissue, Percutaneous Approach (ICD-10-PCS; 2017-08-28)
DX: I26.99 Other pulmonary embolism without acute cor pulmonale (principal); I95.9 Hypotension, unspecified; R06.02 Shortness of breath; R07.9 Chest pain, unspecified; E78.5 Hyperlipidemia, unspecified; I10 Essential (primary) hypertension; E11.9 Type 2 diabetes mellitus without complications; K21.9 Gastro-esophageal reflux disease without esophagitis; Z79.84 Long term (current) use of oral hypoglycemic drugs; E66.9 Obesity, unspecified; Z68.42 Body mass index [BMI] 45.0-49.9, adult
CPT/HCPCS: 36415; 71045-TC-FY; 71275-TC; 80048; 80053; 82550; 82553; 82803; 82962; 83735; 83880; 84100; 84484; 85025; 85027; 85610; 85730; 93005; 93010; 93306-TC; 93971-TC; 94761; 99285-25; G0378; J7030

== ENCOUNTER 2018-03-07 09:41 | Emergency (ER) | payer BC ==
[2018-03-07 09:56] VITALS: BMI 47.3
[2018-03-07 11:24] LABS: BASO % 1.5 % (0-2.0); EOS % 4.8 % (0-4.5); HEMATOCRIT 40.6 % (32.4-45.2); LYMPH % 27.2 % (8-40); MCH 30.2 pg (25.7-33.7); MCHC 34.6 g/dl (32.0-36.0); MEAN CELL VOLUME 87.5 fl (80-96); MEAN PLT VOLUME 10.2 fl (7.5-11.1); NEUT % 61.5 % (42.8-82.8); PLATELET COUNT 206 K/MM3 (134-434); RBC 4.65 M/mm3 (3.60-5.2); RDW 14.4 % (11.6-15.6); WHITE BLOOD COUNT 8.4 K/mm3 (4.0-10.0)
[2018-03-07 11:37] LABS: INR 1.28 (0.83-1.09); PROTHROMBIN TIME (PATIENT) 15.1 SEC (9.7-13.0)
[2018-03-07 11:40] LABS: ACTIVATED PTT 32.8 SECONDS (25.2-36.5)
[2018-03-07 11:59] LABS: ALK PHOS 152 U/L (45-117); ANION GAP 7 MMOL/L (8-16); BILIRUBIN,TOTAL 0.4 mg/dL (0.2-1); BLOOD UREA NITROGEN 13 mg/dL (7-18); CALCIUM 8.9 mg/dL (8.5-10.1); CHLORIDE 102 mmol/L (98-107); CO2 28 mmol/L (21-32); GLUCOSE,RANDOM 215 mg/dL (74-106); N-TERMINAL BNP 60.4 pg/ml (5-125); POTASSIUM 4.3 mmol/L (3.5-5.1); SGOT/AST 13 U/L (15-37); SGPT/ALT 20 U/L (13-61); SODIUM 137 mmol/L (136-145); TOT PROT 7.5 g/dl (6.4-8.2)
--- NOTE | 2018-03-07 12:27 | PDOC ---
History of Present Illness - General Chief Complaint: Shortness of Breath Stated Complaint: SHORTNESS OF BREATH, CHEST PAIN, LEG PAIN Time Seen by Provider: 03/07/18 10:57 History Source: Patient Exam Limitations: No Limitations - History of Present Illness Initial Comments: 03/07/18 14:56 47 yo F with a hx of HTN, HLD, BRCA positive (unknown variant), DM, and PE (2017) presents to the emergency department with SOB since last night with concurrent chest pain and right lower extremity swelling. She states she had had multiple DVT work ups done out of fear of a recurrence of her PE. Her last ultrasound in January 2018 showed no DVT and a MRI of the right LE showed the same enlarged lymph node noted on the ultrasound. However, she states the right leg is more swollen than before and has been progressively worsening over 2 weeks. She started having SOB while at rest yesterday with concurrent chest pain left chest wall intermittent 2/10 pain with worsening pain with deep inspiration without radiation. She denies the following: Past History - Past Medical History Allergies/Adverse Reactions: Allergies Allergy/AdvReac Type Severity Reaction Status Date / Time No Known Allergies Allergy Verified 03/07/18 09:56 Home Medications: Ambulatory Orders Simvastatin [Zocor -] 20 mg PO HS 03/20/15 Canagliflozin [Invokana] 100 mg PO DAILY 06/10/16 Omeprazole 40 mg PO DAILY 08/04/17 Apixaban [Eliquis] 5 mg PO BID 08/28/17 Glipizide 20 mg PO BID 08/28/17 Losartan Potassium 50 mg PO DAILY #30 tablet 08/29/17 Linagliptin [Tradjenta] 5 mg PO DAILY 03/07/18 Anemia: Yes Asthma: No Cancer: No Cardiac Disorders: Yes CVA: No COPD: No CHF: No Dementia: No Diabetes: Yes GI Disorders: No Disorders: No HTN: Yes Hypercholesterolemia: Yes Liver Disease: No Seizures: No Thyroid Disease: No - Surgical History Abdominal Surgery: No Appendectomy: No Cardiac Surgery: No Cholecystectomy: No Lung Surgery: No Neurologic Surgery: No Orthopedic Surgery: No - Suicide/Smoking/Psychosocial Hx Smoking History: Never smoked Have you smoked in the past 12 months: No Hx Alcohol Use: Yes (SOCIAL) Drug/Substance Use Hx: No Substance Use Type: None Hx Substance Use Treatment: No *Physical Exam - Vital Signs Last Vital Signs Temp Pulse Resp BP Pulse Ox 97.9 F 90 18 153/78 98 03/07/18 09:44 03/07/18 09:44 03/07/18 09:44 03/07/18 09:44 03/07/18 09:44 Moderate Sedation - Procedure Monitoring Vital Signs: Procedure Monitoring Vital Signs Temperature 97.9 F 03/07/18 09:44 Pulse Rate 90 03/07/18 09:44 Respiratory Rate 18 03/07/18 09:44 Blood Pressure 153/78 03/07/18 09:44 O2 Sat by Pulse Oximetry (%) 98 03/07/18 09:44 ED Treatment Course - LABORATORY CBC & Chemistry Diagram: 03/07/18 10:54 03/07/18 10:54 - ADDITIONAL ORDERS Additional order review: Laboratory Results 03/07/18 03/07/18 03/07/18 10:54 10:54 10:54 PT with INR INR PTT (Actin FS) D-Dimer 679 H Sodium 137 Potassium 4.3 Chloride 102 Carbon Dioxide 28 Anion Gap 7 L BUN 13 Creatinine 1.0 Creat Clearance w eGFR 59.18 Random Glucose 215 H Calcium 8.9 Total Bilirubin 0.4 AST 13 L ALT 20 Alkaline Phosphatase 152 H Creatine Kinase 179 Creatine Kinase Index 0.5 CK-MB (CK-2) < 1.0 Troponin I < 0.02 B-Natriuretic Peptide 60.4 Total Protein 7.5 Albumin 3.0 L Blood Type O POSITIVE 03/07/18 10:54 PT with INR 15.10 H INR 1.28 H PTT (Actin FS) 32.8 D-Dimer Sodium Potassium Chloride Carbon Dioxide Anion Gap BUN Creatinine Creat Clearance w eGFR Random Glucose Calcium Total Bilirubin AST ALT Alkaline Phosphatase Creatine Kinase Creatine Kinase Index CK-MB (CK-2) Troponin I B-Natriuretic Peptide Total Protein Albumin Blood Type 03/07/18 10:54 RBC 4.65 MCV 87.5 MCHC 34.6 RDW 14.4 MPV 10.2 Neutrophils % 61.5 Lymphocytes % 27.2 Monocytes % 5.0 Eosinophils % 4.8 H Basophils % 1.5 Medical Decision Making - Medical Decision Making 03/07/18 15:08 MRI impression: 02/24/2018 "A few shotty nonenlarged inguinal lymph nodes are noted bilaterally. No other solid or cystic mass identified" *DC/Admit/Observation/Transfer Diagnosis at time of Disposition: Chest pain Qualifiers: Chest pain type: unspecified Qualified Code(s): R07.9 - Chest pain, unspecified - Discharge Dispostion Disposition: HOME Decision to Admit order: No - Referrals Referrals: Alan Engel v [Primary Care Provider] - - Patient Instructions Printed Discharge Instructions: DI for Atypical Chest Pain Additional Instructions: you were seen in the emergency department for the evaluation of your chest pain , your labs and imaging were negative for acute pathologies including a heart attack and pulmonary embolism. please follow up with your doctor within 1 week for follow up care and management. please return to the emergency department if you have worsening symptoms or new concerning symptoms such as fever/chills, pain that radiates to your back, and acute shortness of breath with exertion. thank you - Post Discharge Activity
[2018-03-07 14:11] VITALS: BP 114/87; PULSE 80; TEMP 98.4
--- NOTE | 2018-03-07 15:01 | PDOC ---
Attending Attestation - Resident Resident Name: Roshan Carias - ED Attending Attestation I have performed the following: I have examined & evaluated the patient, The case was reviewed & discussed with the resident, I agree w/resident's findings & plan, Exceptions are as noted - HPI HPI: 03/07/18 15:18 47 F with h/o HTN, HLD, BRCA positive (unknown variant), DM, and PE (07/2017) on eliquis, presenting to ED with pleuritic chest pain and RLE cramping. Pt states that she has had RLE pain for several months. Had several US that were negative for DVT. Also had a MRI that showed enlarged lymph node. Pt states that she developed pleuritic chest pain over the past week. It is intermittent, not constant. Not exertional. States it feels similar to prior PE. - Physicial Exam PE: 03/07/18 15:22 "GENERAL: Awake, alert, and fully oriented, in no acute distress. HEAD: No signs of trauma EYES: PERRLA, EOMI, sclera anicteric, conjunctiva clear ENT: Auricles normal inspection, hearing grossly normal, nares patent, oropharynx clear without exudates. Moist mucosa NECK: Nontender, no stepoffs, Normal ROM, supple, no lymphadenopathy, JVD, or masses LUNGS: Breath sounds equal, clear to auscultation bilaterally. No wheezes, and no crackles HEART: Regular rate and rhythm, normal S1 and S2, no murmurs, rubs or gallops ABDOMEN: Soft, nontender, normoactive bowel sounds. No guarding, no rebound. No masses EXTREMITIES: Normal range of motion, no edema. No clubbing or cyanosis. No cords, erythema, or tenderness NEUROLOGICAL: Cranial nerves II through XII intact. 5/5 strength and sensation in all extremities, Normal speech, normal gait, normal cerebellar function SKIN: Warm, Dry, normal turgor, no rashes or lesions noted. - Medical Decision Making 03/07/18 15:22 47 F with pleuritic chest pain x 1 week. Will need PE r/o given h/o PE. Pt with no clinical s/s DVT on exam and had multiple negative US. Pt with no EKG changes to suggest ACS. - Labs, trop - US - CTA chest 03/07/18 15:24 Labs wnl US and CTA negative for PE/DVT Pt with HEART score 3. Pt is well appearing, with normal vitals. Clinically stable for DC at this time. I discussed the physical exam findings, ancillary test results and final diagnoses with the patient. I answered all of the patient's questions. The patient was satisfied with the care received and felt comfortable with the discharge plan and treatment plan. The patient agrees to follow up with the primary care physician within 24-72 hours. Heart Score/ECG Review - History History: Slightly suspicious - Electrocardiogram EKG: Normal - Age Age: 45-65 - Risk Factors Risk Factors Heart Score: Yes Hx Hypercholesterolemia, Yes Hx Hypertension, Yes Hx Diabetes Based on the list above the patient has:: >/=3 risk factors or Hx atherosclerotic disease - Troponin Troponin: </= normal limit - Score Heart Score - Total: 3
== END 2018-03-07 15:20 | disposition home or self-care (01) ==
LOC: JER 09:41
DX: R07.9 Chest pain, unspecified (principal); I10 Essential (primary) hypertension; E78.5 Hyperlipidemia, unspecified; E11.9 Type 2 diabetes mellitus without complications; Z86.711 Personal history of pulmonary embolism; Z79.01 Long term (current) use of anticoagulants
CPT/HCPCS: 36415; 71275-TC; 80053; 82550; 82553; 83880; 84484; 84703; 85025; 85379; 85610; 85730; 86850; 86870; 86900; 86901; 86902; 93970-TC; 99283-25

== ENCOUNTER 2018-08-09 09:25 | Emergency (ER) | payer OTHER, BC | END 2018-08-09 14:50 | disposition home or self-care (01) | LOC: JER 09:25 ==

== ENCOUNTER 2020-12-24 10:11 | Emergency (ER) | payer BC ==
[2020-12-24 10:35] VITALS: BMI 45.7
[2020-12-24] MEDS ORDERED: SODIUM CHLORIDE 0.9% 500 ML INFUS.BAG IV ONE (11:23)
[2020-12-24 12:25] LABS: VENOUS BASE EXCESS -0.8 mmol/L (-2-2); VENOUS PCO2 46.9 mmHg (38-52); VENOUS PH 7.349 (7.310-7.410)
[2020-12-24 12:26] LABS: HEMATOCRIT 43.3 % (32.4-45.2); HEMOGLOBIN 14.3 GM/dL (10.7-15.3); MCH 29.5 pg (25.7-33.7); MCHC 32.9 g/dl (32.0-36.0); MEAN CELL VOLUME 89.7 fl (80-96); MEAN PLT VOLUME 9.5 fl (7.5-11.1); PLATELET COUNT 214 10^3/uL (134-434); RBC 4.83 M/mm3 (3.60-5.2); RDW 14.9 % (11.6-15.6); WHITE BLOOD COUNT 8.9 K/mm3 (4.0-10.0)
[2020-12-24 12:29] LABS: URINE APPEARANCE CLEAR; URINE BILIRUBIN NEGATIVE (NEGATIVE); URINE COLOR YELLOW; URINE GLUCOSE (UA) 3+ (NEGATIVE); URINE KETONE NEGATIVE (NEGATIVE); URINE LEUK ESTERASE NEGATIVE (NEGATIVE); URINE NITRITE NEGATIVE (NEGATIVE); URINE PROTEIN NEGATIVE (NEGATIVE); URINE UROBILINOGEN 0.2 mg/dL (0.2-1.0)
[2020-12-24 12:47] LABS: CHLORIDE 104 mmol/L (98-107); SODIUM 139 mmol/L (136-145)
[2020-12-24 12:49] LABS: ALBUMIN 2.9 g/dl (3.4-5.0); ANION GAP 8 MMOL/L (8-16); CALCIUM 8.7 mg/dL (8.5-10.1); CO2 27 mmol/L (21-32)
[2020-12-24 12:50] LABS: BLOOD UREA NITROGEN 13.5 mg/dL (7-18); MAGNESIUM 2.1 mg/dL (1.8-2.4)
[2020-12-24 12:52] LABS: GLUCOSE,RANDOM 277 mg/dL (74-106)
[2020-12-24 12:53] LABS: SGOT/AST 18 U/L (15-37); SGPT/ALT 21 U/L (13-61)
[2020-12-24 12:54] LABS: BILIRUBIN,TOTAL 0.2 mg/dL (0.2-1); TOT PROT 7.4 g/dl (6.4-8.2)
[2020-12-24 12:55] LABS: ALK PHOS 136 U/L (45-117)
[2020-12-24] MEDS ORDERED: INSULIN REGULAR HUMAN 100 UNITS/ML *VIAL SQ ONE (13:38)
[2020-12-24 13:47] LABS: ANISOCYTOSIS 0; MACROCYTOSIS 0; PLATELET ESTIMATE NORMAL
[2020-12-24 15:00] VITALS: BP 145/75; PULSE 87; TEMP 98.4
== END 2020-12-24 15:00 | disposition home or self-care (01) ==
LOC: JER 10:11
PROC: 3E023GC Introduction of Other Therapeutic Substance into Muscle, Percutaneous Approach (ICD-10-PCS; principal; 2020-12-24)
DX: E11.65 Type 2 diabetes mellitus with hyperglycemia (principal); Z91.14 Patient's other noncompliance with medication regimen
CPT/HCPCS: 36415; 71046-TC-FY; 80053; 81003; 82010; 82550; 82803; 82962; 83735; 84100; 84484; 85025; 87077; 87086; 93005; 93010; 99285-25

== ENCOUNTER 2021-06-09 22:28 | Emergency (ER) | payer BC ==
[2021-06-09 22:37] VITALS: BP 138/84; PULSE 94; BMI 44.2
[2021-06-09 22:50] VITALS: TEMP 98.3
[2021-06-09] MEDS ORDERED: ACETAMINOPHEN 500 MG TABLET (FP) PO ONE (23:05)
[2021-06-09] MEDS ORDERED: ACETAMINOPHEN 325 MG TABLET (FP) ONE (23:06)
== END 2021-06-10 00:40 | disposition home or self-care (01) ==
LOC: JER 22:28
DX: M79.604 Pain in right leg (principal)
CPT/HCPCS: 93970-TC; 99284-25

== ENCOUNTER 2021-10-30 08:11 | Emergency (ER) | payer BC ==
[2021-10-30 08:18] VITALS: BP 129/63; PULSE 95; RESP 18; TEMP 97.8; BMI 44.2
[2021-10-30] MEDS ORDERED: ACETAMINOPHEN 325 MG TABLET (FP) PO ONE (08:39)
[2021-10-30] MEDS ORDERED: ACETAMINOPHEN 325 MG TABLET (FP) ONE (09:24)
== END 2021-10-30 09:56 | disposition home or self-care (01) ==
LOC: JER 08:11
DX: M17.12 Unilateral primary osteoarthritis, left knee (principal); L03.011 Cellulitis of right finger; S50.11XA Contusion of right forearm, initial encounter
CPT/HCPCS: 73090-TC-LT-FY; 99284-25

== ENCOUNTER 2021-11-12 10:55 | Emergency (ER) | payer BC ==
[2021-11-12 11:30] VITALS: BP 144/73; PULSE 81; RESP 18; TEMP 98.2; BMI 44.8
[2021-11-12] MEDS ORDERED: KETOROLAC TROMETHAMINE 60 MG/2 ML VIAL IM ONE (13:08)
[2021-11-12] MEDS ORDERED: KETOROLAC TROMETHAMINE 30 MG/1 ML VIAL ONE (13:14)
== END 2021-11-12 15:12 | disposition home or self-care (01) ==
LOC: JERFT 10:55
PROC: 3E0233Z Introduction of Anti-inflammatory into Muscle, Percutaneous Approach (ICD-10-PCS; principal; 2021-11-12)
DX: M25.562 Pain in left knee (principal)
CPT/HCPCS: 73562-TC-LT-FY; 99284-25

== ENCOUNTER 2021-12-19 04:01 | Day surgery (SDC) | payer BC ==
[2021-12-17 16:20] VITALS: BMI 45.3
[2021-12-19] MEDS ORDERED: PROPOFOL 20 ML ONE (09:06)
[2021-12-19] MEDS ORDERED: MIDAZOLAM HCL 2 MG/2 ML SINGLE DOSE VIAL ONE (09:06)
[2021-12-19] MEDS ORDERED: ceFAZolin SODIUM 1 GM VIAL ONE (09:47)
[2021-12-19] MEDS ORDERED: ceFAZolin SODIUM 1 GM VIAL IVPB ONE (09:49)
[2021-12-19] MEDS ORDERED: KETOROLAC TROMETHAMINE 30 MG/1 ML VIAL ONE (10:14)
[2021-12-19] MEDS ORDERED: ACETAMINOPHEN INJECTION 100 ML IVPB ONE (10:32)
[2021-12-19] MEDS ORDERED: oxyCODONE HCL 5 MG TABLET PO PRN (10:46)
[2021-12-19] MEDS ORDERED: ONDANSETRON 4 MG/2 ML VIAL IVPUSH PRN (10:46)
[2021-12-19 12:30] VITALS: RESP 20; TEMP 97.9
[2021-12-19 15:01] VITALS: BP 128/75; PULSE 84
== END 2021-12-19 14:34 | disposition home or self-care (01) ==
LOC: JASU-SURG 04:01
PROVIDERS: ATTEND Orthopaedic Surgery
PROC: 0SBD4ZZ Excision of Left Knee Joint, Percutaneous Endoscopic Approach (ICD-10-PCS; principal; 2021-12-19 09:00)
DX: S83.242A Other tear of medial meniscus, current injury, left knee, initial encounter (principal); X58.XXXA Exposure to other specified factors, initial encounter; Y93.9 Activity, unspecified; Y92.9 Unspecified place or not applicable; Y99.9 Unspecified external cause status; E11.9 Type 2 diabetes mellitus without complications; I10 Essential (primary) hypertension
CPT/HCPCS: 82962; 94760

== ENCOUNTER 2022-09-08 13:05 | Emergency (ER) | payer BC ==
[2022-09-08 13:10] VITALS: BP 155/77; PULSE 111; RESP 18; TEMP 98.5; BMI 34.9
[2022-09-08] MEDS ORDERED: ACETAMINOPHEN 500 MG TABLET (FP) PO ONE (14:48)
[2022-09-08] MEDS ORDERED: KETOROLAC TROMETHAMINE 15 MG/ML VIAL IVPUSH ONE (14:48)
[2022-09-08] MEDS ORDERED: KETOROLAC TROMETHAMINE 15 MG/ML VIAL ONE (14:50)
[2022-09-08] MEDS ORDERED: ACETAMINOPHEN 500 MG TABLET (FP) ONE (14:50)
[2022-09-08 15:21] LABS: BASO % 1.2 % (0-2.0); EOS % 3.2 % (0-4.5); HEMATOCRIT 46.5 % (32.4-45.2); HEMOGLOBIN 15.3 GM/dL (10.7-15.3); LYMPH % 26.9 % (8-40); MCH 29.2 pg (25.7-33.7); MEAN CELL VOLUME 88.5 fl (80-96); MEAN PLT VOLUME 9.6 fl (7.5-11.1); MONO % 5.3 % (3.8-10.2); NEUT % 63.4 % (42.8-82.8); PLATELET COUNT 259 10^3/uL (134-434); RBC 5.25 M/mm3 (3.60-5.2); WHITE BLOOD COUNT 9.9 K/mm3 (4.0-10.0)
[2022-09-08 15:37] LABS: POTASSIUM 4.9 mmol/L (3.5-5.1)
[2022-09-08 15:39] LABS: CALCIUM 9.7 mg/dL (8.5-10.1)
[2022-09-08 15:40] LABS: ALBUMIN 3.4 g/dl (3.4-5.0); BLOOD UREA NITROGEN 9.4 mg/dL (7-18)
[2022-09-08 15:43] LABS: CREATININE 1.1 mg/dL (0.55-1.3)
[2022-09-08 15:44] LABS: BILIRUBIN,TOTAL 0.5 mg/dL (0.2-1)
[2022-09-08 15:45] LABS: TOT PROT 7.7 g/dl (6.4-8.2)
== END 2022-09-08 16:22 | disposition home or self-care (01) ==
LOC: JERFT 13:05 → JER 13:05 → JERFT 16:22
PROC: 3E0333Z Introduction of Anti-inflammatory into Peripheral Vein, Percutaneous Approach (ICD-10-PCS; principal; 2022-09-08)
DX: R51.9 Headache, unspecified (principal); M54.50 Low back pain, unspecified
CPT/HCPCS: 36415; 80053; 85025; 99284-25

== ENCOUNTER → 2022-10-29 | Day surgery (SDC) | payer BC | END | disposition home or self-care (01) | LOC: FMAMMOTONE 09:53 | PROVIDERS: ATTEND Family Medicine | PROC: 0HBT3ZX Excision of Right Breast, Percutaneous Approach, Diagnostic (ICD-10-PCS; principal; 2022-10-29) | DX: D24.1 Benign neoplasm of right breast (principal); N64.89 Other specified disorders of breast; R92.0 Mammographic microcalcification found on diagnostic imaging of breast | CPT/HCPCS: 19081; 76098-TC-FY; 88305-TC ==

== ENCOUNTER 2023-04-09 10:35 | Emergency (ER) | payer BC ==
[2023-04-09 11:06] VITALS: BP 133/71; PULSE 99; RESP 18; TEMP 98; BMI 40.7
[2023-04-09] MEDS ORDERED: ACETAMINOPHEN 1000 MG/100 ML BAG IVPB ONE (12:00)
[2023-04-09] MEDS ORDERED: ACETAMINOPHEN INJECTION 100 ML IVPB ONE (12:31)
[2023-04-09 12:53] LABS: PH,URINE 5.5 (5.0-8.0); URINE APPEARANCE CLEAR; URINE BILIRUBIN NEGATIVE (NEGATIVE); URINE COLOR YELLOW; URINE GLUCOSE (UA) 3+ (NEGATIVE); URINE KETONE NEGATIVE (NEGATIVE); URINE LEUK ESTERASE NEGATIVE (NEGATIVE); URINE NITRITE NEGATIVE (NEGATIVE); URINE PROTEIN NEGATIVE (NEGATIVE); URINE UROBILINOGEN 0.2 mg/dL (0.2-1.0)
[2023-04-09] MEDS ORDERED: SODIUM CHLORIDE 1,000 ML IV STA (12:54)
[2023-04-09 12:58] LABS: BASO % 1.8 % (0-2.0); EOS % 3.4 % (0-4.5); HEMATOCRIT 43.4 % (32.4-45.2); HEMOGLOBIN 14.5 GM/dL (10.7-15.3); LYMPH % 31.4 % (8-40); MCH 29.5 pg (25.7-33.7); MCHC 33.5 g/dl (32.0-36.0); MEAN CELL VOLUME 88.2 fl (80-96); MEAN PLT VOLUME 9.2 fl (7.5-11.1); NEUT % 58.4 % (42.8-82.8); PLATELET COUNT 232 10^3/uL (134-434); RBC 4.92 M/mm3 (3.60-5.2); RDW 14.4 % (11.6-15.6); WHITE BLOOD COUNT 9.4 K/mm3 (4.0-10.0)
[2023-04-09 13:48] LABS: CALCIUM 9.8 mg/dL (8.5-10.1); POTASSIUM 4.6 mmol/L (3.5-5.1)
[2023-04-09 13:49] LABS: ALBUMIN 3.2 g/dl (3.4-5.0); BLOOD UREA NITROGEN 9.4 mg/dL (7-18)
[2023-04-09 13:52] LABS: CREATININE 0.8 mg/dL (0.55-1.3)
[2023-04-09 13:53] LABS: TOT PROT 7.3 g/dl (6.4-8.2)
[2023-04-09 13:54] LABS: BILIRUBIN,TOTAL 0.4 mg/dL (0.2-1)
== END 2023-04-09 15:18 | disposition home or self-care (01) ==
LOC: JER 10:35
PROC: 3E033NZ Introduction of Analgesics, Hypnotics, Sedatives into Peripheral Vein, Percutaneous Approach (ICD-10-PCS; principal; 2023-04-09)
PROC: 3E0337Z Introduction of Electrolytic and Water Balance Substance into Peripheral Vein, Percutaneous Approach (ICD-10-PCS; 2023-04-09)
DX: R10.11 Right upper quadrant pain (principal); R10.13 Epigastric pain; S30.1XXA Contusion of abdominal wall, initial encounter; Y04.8XXA Assault by other bodily force, initial encounter
CPT/HCPCS: 36415; 74176-TC; 80053; 81003; 83690; 85025; 99284-25